=== PATIENT | male | born 1940 | race Two or more races ===

== ENCOUNTER → 2018-11-04 | Outpatient (CLI) | payer MEDICARE ==
[~2018-11-04] MED LIST: ASP81EC PO; ATO40T PO; CLOP75TA41 PO; GLIP-115 PO; LEVO100T8 PO; LISI40TA PO; METF-370 PO
[2018-11-04 11:19] VITALS: BP 126/59
--- NOTE | 2018-11-04 11:19 | NUR ---
Pre-Op Discharge Summary: See e-MAR for any medications given for this visit. Pre-op orders received and carried out per MD of EKG, LABS and chest xrays. Patient given a copy of EKG with instructions to go to [facility] out patient for further follow up care.
[2018-11-04 11:45] VITALS: BP 108/57
[2018-11-04 12:26] LABS: Basophils # (auto) 0 uL; Basophils % (auto) 0.4 % (0.0-2.0); Eosinophils # (auto) 0.4 uL; Eosinophils % (auto) 5.4 % (0.0-7.0); Hematocrit 42.7 % (41.0-53.0); Hemoglobin 14.2 g/dL (13.5-17.5); Lymphocytes # (auto) 1.8 uL; Lymphocytes % (auto) 22.8 % (10.0-50.0); Mean Corpuscular Hemoglobin 31.3 pg (28.0-32.0); Mean Corpuscular Hgb Conc. 33.2 g/dL (32.0-36.0); Mean Corpuscular Volume 94.3 fL (80.0-100.0); Monocytes # (auto) 0.7 uL; Monocytes % (auto) 9.1 % (0.0-12.0); Neutrophils # (auto) 4.9 uL; Neutrophils % (auto) 62.3 % (37.0-80.0); Nucleated Red Blood Cells % 0.1 %; Platelet Count (auto) 207 10^3/uL (140-450); Red Blood Cells 4.53 10^6/uL (4.5-5.90); Red Cell Distribution Width 13.5 % (11.8-14.3); White Blood Cell 7.8 10^3/uL (4.4-10.8)
[2018-11-04 12:29] LABS: INR 1.04 (0.9-1.15); Partial Thromboplastin Time 26.8 sec (23.78-33.04); Prothrombin Time 11.1 sec (9.27-12.13)
[2018-11-04 12:31] LABS: Potassium 4.2 mmol/L (3.5-5.1)
[2018-11-04 12:40] LABS: BUN/Creatinine Ratio 17.1
== END | disposition home or self-care (01) ==
LOC: Rad HDHVI 11:05
PROVIDERS: ATTEND Internal Medicine Cardiovascular Disease
DX: Z01.812 Encounter for preprocedural laboratory examination (principal); D64.9 Anemia, unspecified; R79.1 Abnormal coagulation profile; I10 Essential (primary) hypertension; I70.0 Atherosclerosis of aorta; E11.9 Type 2 diabetes mellitus without complications
CPT/HCPCS: 36415; 71046; 80048; 85025; 85610; 85730; 93005; G0463

== ENCOUNTER 2018-11-07 09:26 | Inpatient (IN) | payer MEDICARE, OTHER | END 2018-11-09 15:15 | disposition home or self-care (01) | LOC: CATH 09:26 → CENTRAL 15:33 | PROC: B41G1ZZ Fluoroscopy of Left Lower Extremity Arteries using Low Osmolar Contrast (ICD-10-PCS; principal; ~2018-11-07) | PROC: 047M34Z Dilation of Right Popliteal Artery with Drug-eluting Intraluminal Device, Percutaneous Approach (ICD-10-PCS; ~2018-11-07) | PROC: 047 Lower Arteries, Dilation (ICD-10-PCS; ~2018-11-07) | PROC: B41F1ZZ Fluoroscopy of Right Lower Extremity Arteries using Low Osmolar Contrast (ICD-10-PCS; ~2018-11-07) | DX: I73.9 Peripheral vascular disease, unspecified (principal); E78.5 Hyperlipidemia, unspecified; I10 Essential (primary) hypertension; I25.10 Atherosclerotic heart disease of native coronary artery without angina pectoris ==

== ENCOUNTER → 2018-12-16 | Outpatient (CLI) | payer MEDICARE | END | disposition home or self-care (01) | LOC: Rad HDHVI 10:09 | PROVIDERS: ATTEND Internal Medicine Cardiovascular Disease | DX: I67.2 Cerebral atherosclerosis (principal); G31.9 Degenerative disease of nervous system, unspecified | CPT/HCPCS: 70450 ==

== ENCOUNTER → 2018-12-25 | Outpatient (CLI) | payer MEDICARE ==
[~2018-12-25] MED LIST changes: +RIVA10TA PO
[2018-12-25 09:00] VITALS: BP 129/56
[2018-12-25 09:30] VITALS: BP 116/55
--- NOTE | 2018-12-25 09:30 | NUR ---
Pre-Op Discharge Summary: See e-MAR for any medications given for this visit. Pre-op orders received and carried out per MD of EKG, LABS and prescription for a chest xray given to patient. Patient given a copy of EKG with instructions to go to [facility] out patient for further follow up care.
[2018-12-25 12:07] LABS: Basophils # (auto) 0.1 uL; Basophils % (auto) 0.8 % (0.0-2.0); Eosinophils # (auto) 0.6 uL; Eosinophils % (auto) 7.3 % (0.0-7.0); Hematocrit 41.7 % (41.0-53.0); Hemoglobin 14.1 g/dL (13.5-17.5); Lymphocytes % (auto) 24.9 % (10.0-50.0); Mean Corpuscular Hemoglobin 32.4 pg (28.0-32.0); Mean Corpuscular Hgb Conc. 33.8 g/dL (32.0-36.0); Monocytes # (auto) 0.9 uL; Monocytes % (auto) 10.9 % (0.0-12.0); Neutrophils # (auto) 4.4 uL; Neutrophils % (auto) 56.1 % (37.0-80.0); Nucleated Red Blood Cells % 0.2 %; Platelet Count (auto) 228 10^3/uL (140-450); Red Blood Cells 4.35 10^6/uL (4.5-5.90); Red Cell Distribution Width 14.1 % (11.8-14.3); White Blood Cell 7.9 10^3/uL (4.4-10.8)
[2018-12-25 12:17] LABS: Calcium 9.3 mg/dL (8.5-10.1); Potassium 4.8 mmol/L (3.5-5.1)
[2018-12-25 12:20] LABS: BUN/Creatinine Ratio 16.5
[2018-12-25 12:22] LABS: INR 1.03 (0.9-1.15); Partial Thromboplastin Time 27.2 sec (23.64-32.05); Prothrombin Time 11.1 sec (9.06-12.60)
== END | disposition home or self-care (01) ==
LOC: CHF HDHVI 08:56
PROVIDERS: ATTEND Internal Medicine Cardiovascular Disease
DX: Z01.812 Encounter for preprocedural laboratory examination (principal); I11.0 Hypertensive heart disease with heart failure; I50.9 Heart failure, unspecified; D64.9 Anemia, unspecified; R79.1 Abnormal coagulation profile; E11.9 Type 2 diabetes mellitus without complications; I73.9 Peripheral vascular disease, unspecified
CPT/HCPCS: 36415; 80048; 85025; 85610; 85730; 93005; G0463

== ENCOUNTER 2018-12-27 10:47 | Inpatient (IN) | payer MEDICARE ==
[~2018-12-27] VITALS: Ht 175.3 cm; Wt 91.2 kg
[~2018-12-27 10:47] MED LIST changes: -ASP81EC PO
[2018-12-27] MEDS ORDERED: HEPARIN IN NS 1000Units/500mL 1,500 ML ONE (12:42)
[2018-12-27] MEDS ORDERED: LIDOCAINE 2%HCL (LOCAL ANESTH.) INJ 20ML MDV ONE (12:42)
[2018-12-27] MEDS ORDERED: IOHEXOL 350 MG/ML 100ML IJ ONE (12:42)
[2018-12-27] MEDS ORDERED: ANGIOMAX 250 MG VIAL IV ONE (12:55)
[2018-12-27] MEDS ORDERED: PHENYLEPHRINE HCL 10 MG/ML VL ONE (12:55)
[2018-12-27] MEDS ORDERED: GLYCOPYRROLATE 0.2 MG/ML 1ML VIAL ONE (12:55)
[2018-12-27] MEDS ORDERED: SODIUM CHL 0.9% 50 ML ONE (12:55)
[2018-12-27] MEDS ORDERED: ATROPINE SULFATE 1 MG/1 ML VIAL ONE (13:40)
[2018-12-27] MEDS ORDERED: CLOPIDOGREL BISULFATE 75 MG TAB ONE (14:06)
[2018-12-27] MEDS ORDERED: DOPamine 1600MCG/ML D5W 250 ML IV ONE (14:42)
[2018-12-27] MEDS: DOPamine 1600MCG/ML D5W 250 ML IV SCH (15:10)
[2018-12-27] MEDS ORDERED: MORPHINE SULF INJ 2 MG/ML SYRINGE 1ML IV PRN (15:15)
[2018-12-27] MEDS ORDERED: DEXTROSE (50%) 50ML SYRG IV PRN (15:15)
[2018-12-27] MEDS ORDERED: NITROGLYCERIN 0.4 MG SL TAB SL PRN (15:15)
[2018-12-27] MEDS: HYDROcodone-ACET 5/325MG TAB PO PRN ×2 (15:20→19:36)
[2018-12-27] MEDS: ONDANSETRON HCL 4 MG/2 ML VIAL IV PRN ×2 (17:37→22:04)
[2018-12-27] MEDS: InsuLIN REG 1unit/0.01ml Soln (100units/ml) SC SCH ×2 (18:10→22:03)
[2018-12-27] MEDS: ACCU-CHEK COMFORT CURVE STRIP VI SCH ×2 (18:11→22:03)
[2018-12-27] MEDS: glipiZIDE 5 MG TAB PO SCH (18:11)
--- NOTE | 2018-12-27 18:34 | NUR ---
Report received from cath lab tech. KEVIN MCKEON brought to bed following Cardiac catheterization, on director of cardiac cath lab and portable oxygen. Patient transfered to unit bed, connected to traffic monitor specialist # and oxygen. Catheterization site assessed for any bleeding, redness or swelling. Angioseal to right groin. Pedal pulses on affected leg assessed for positive tissue perfusion. Patient instructed on need to notify staff immediately if any pain, burning or wetness to site, and any lower back pain. Patient educated on new cardiac medications. All questions and concerns addressed, patient verbalized understanding of all education and instruction. See notes for any further.
[2018-12-27 20:00] VITALS: BP 120/58
[2018-12-27 21:00] VITALS: BP 119/100
[2018-12-27 22:00] VITALS: BP_SYST 119; BP_SYST 97; BP_DIAS 100; BP_DIAS 44
--- NOTE | 2018-12-27 22:00 | NUR ---
Q1hr BP and Pulses Complete Last check done at 2200. Vitals signs stable and charted under interventions. All pedal pulses audible via doppler. Pt reports no pain at the insertion site as well as no numbness or tingling sensations in feet or toes. Will continue to monitor.
[2018-12-27] MEDS: ATORVASTATIN 20 MG TAB PO SCH (22:03)
[2018-12-27] MEDS: ACETAMINOPHEN 500 MG TAB PO PRN (22:04)
[2018-12-28 04:30] VITALS: BP 125/51
[2018-12-28] MEDS: HYDROcodone-ACET 5/325MG TAB PO PRN (05:07)
[2018-12-28] MEDS: DOPamine 1600MCG/ML D5W 250 ML IV SCH ×2 (06:30→20:36)
[2018-12-28] MEDS: ACCU-CHEK COMFORT CURVE STRIP VI SCH ×4 (06:42→22:11)
[2018-12-28] MEDS: LEVOTHYROXINE SODIUM 100 MCG TAB PO SCH (06:51)
[2018-12-28] MEDS: glipiZIDE 5 MG TAB PO SCH ×2 (06:51→17:48)
[2018-12-28] MEDS: InsuLIN REG 1unit/0.01ml Soln (100units/ml) SC SCH ×4 (06:52→22:18)
--- NOTE | 2018-12-28 07:30 | NUR ---
Opening Shift Note Assumed care of patient, awake and alert. No S/S of distress/SOB or pain. S/P angiogram to right groin, dry and intact. Instructed on POC and to call for assist PRN, will continue to monitor for changes Q1hr and PRN.
[2018-12-28] MEDS: ONDANSETRON HCL 4 MG/2 ML VIAL IV PRN ×4 (07:42→21:11)
[2018-12-28 08:06] VITALS: BP 125/60
[2018-12-28] MEDS: RIVAROXABAN 2.5 MG PO SCH (09:51)
[2018-12-28] MEDS: CLOPIDOGREL BISULFATE 75 MG TAB PO SCH (09:51)
[2018-12-28] MEDS: LISINOPRIL 20 MG TAB PO SCH (09:57)
--- NOTE | 2018-12-28 09:57 | NUR ---
Dr. Wong paged regarding BP 74/25 HR : 47 Awaiting to call back.
[2018-12-28] MEDS ORDERED: RIVAROXABAN 10 MG TAB PO SCH (10:00)
--- NOTE | 2018-12-28 10:06 | NUR ---
Received a call from Dr. Wong stated continue with Dobutamine drip and start Florinef 0.1 mg BID.
[2018-12-28 11:00] VITALS: BP 141/41
[2018-12-28 12:08] VITALS: BP 133/48
[2018-12-28 16:37] VITALS: BP 132/56
[2018-12-28 21:00] VITALS: BP 63/26
--- NOTE | 2018-12-28 21:20 | NUR ---
At the request of Samara BECKFORD Ribbermerchandise director, I went to speak with patient and check vitals and status. Patient stated feels nauseated and legs are jerking and keeping him awake. SBP 133. Let patient know to call his RN if feeling badly and let him know he can call me as well. Verbalized understanding.
--- NOTE | 2018-12-28 21:30 | NUR ---
Spoke with Ivana waters RN and asked her to do hourly BP on this patient while on dopamine. Verbalized understanding.
--- NOTE | 2018-12-28 21:52 | NUR ---
BLOOD PRESSURE CHECK BP IS 138/36 . HR 49
--- NOTE | 2018-12-28 21:53 | NUR ---
DR JENNIFER RAMIREZ PATIENT IS COMPLAINING OF SPONTANEOUS TWITCHING IN BOTH LEGS, STATES THAT THIS IS SOMETHING NEW AND JUST STARTED TODAY. WILL AWAIT FOR ANY NEW INTERVENTIONS TO BE DONE.
[2018-12-28] MEDS: ATORVASTATIN 20 MG TAB PO SCH (22:10)
[2018-12-28] MEDS: FLUDROCORTISONE ACETATE 0.1 MG TAB PO SCH (22:10)
--- NOTE | 2018-12-28 22:44 | NUR ---
BLOOD PRESSURE CHECK BP 132/40 HR 47
--- NOTE | 2018-12-28 23:28 | NUR ---
NEW ORDERS PLACED FOR MAG SULFATE 2G IVPB
--- NOTE | 2018-12-28 23:56 | NUR ---
BLOOD PRESSURE CHECK BP 146/48 HR 66
[2018-12-29] MEDS: MAGNESIUM SULFATE 1GM/100ML 100 ML IV SCH ×2 (00:18→01:38)
--- NOTE | 2018-12-29 00:47 | NUR ---
BLOOD PRESSURE CHECK BP 122/28 HR 48
--- NOTE | 2018-12-29 01:52 | NUR ---
BLOOD PRESSURE CHECK BP 133/40 HR 51
--- NOTE | 2018-12-29 02:57 | NUR ---
BLOOD PRESSURE CHECK BP 129/40 HR 51
--- NOTE | 2018-12-29 03:50 | NUR ---
BLOOD PRESSURE CHECK BP 142/44 HR 56
[2018-12-29 05:00] VITALS: BP 132/37
--- NOTE | 2018-12-29 05:01 | NUR ---
BLOOD PRESSURE CHECK BP 132/37 HR 55
[2018-12-29] MEDS: glipiZIDE 5 MG TAB PO SCH ×2 (06:50→17:36)
[2018-12-29] MEDS: LEVOTHYROXINE SODIUM 100 MCG TAB PO SCH (06:51)
[2018-12-29] MEDS: InsuLIN REG 1unit/0.01ml Soln (100units/ml) SC SCH ×4 (06:51→22:00)
[2018-12-29] MEDS: ACCU-CHEK COMFORT CURVE STRIP VI SCH ×4 (06:51→22:04)
--- NOTE | 2018-12-29 07:30 | NUR ---
Opening Shift Note Assumed care of patient, awake and alert. No S/S of distress/SOB or pain. Instructed on POC and to call for assist PRN, will continue to monitor for changes Q1hr and PRN.
[2018-12-29 09:00] VITALS: BP 114/57
[2018-12-29] MEDS: CLOPIDOGREL BISULFATE 75 MG TAB PO SCH (09:27)
[2018-12-29] MEDS: FLUDROCORTISONE ACETATE 0.1 MG TAB PO SCH ×2 (09:27→22:04)
[2018-12-29] MEDS: LISINOPRIL 20 MG TAB PO SCH (09:28)
[2018-12-29] MEDS: RIVAROXABAN 2.5 MG PO SCH (09:28)
[2018-12-29] MEDS: DOPamine 1600MCG/ML D5W 250 ML IV SCH (12:10)
[2018-12-29 13:00] VITALS: BP 114/58
[2018-12-29 14:37] LABS: Basophils # (auto) 0 uL; Basophils % (auto) 0.4 % (0.0-2.0); Eosinophils # (auto) 0.1 uL; Eosinophils % (auto) 1.2 % (0.0-7.0); Hematocrit 43.1 % (41.0-53.0); Hemoglobin 14.5 g/dL (13.5-17.5); Lymphocytes # (auto) 1.2 uL; Lymphocytes % (auto) 13.1 % (10.0-50.0); Mean Corpuscular Hemoglobin 32.1 pg (28.0-32.0); Mean Corpuscular Hgb Conc. 33.6 g/dL (32.0-36.0); Mean Corpuscular Volume 95.6 fL (80.0-100.0); Monocytes # (auto) 0.9 uL; Monocytes % (auto) 9.6 % (0.0-12.0); Neutrophils % (auto) 75.7 % (37.0-80.0); Platelet Count (auto) 224 10^3/uL (140-450); Red Blood Cells 4.51 10^6/uL (4.5-5.90); White Blood Cell 9.2 10^3/uL (4.4-10.8)
[2018-12-29 15:16] VITALS: BP 91/45
[2018-12-29 17:00] VITALS: BP 131/59
--- NOTE | 2018-12-29 19:25 | NUR ---
Opening Shift Note Assumed care of pt, awake and alert x4, sitting up in bed with family at bedside. No S/S of distress or SOB, No pain noted or reported at this time. Updated pt. on POC and instructed to call for assistance as needed, pt. verbalized understanding. Bed locked in lowest position, side rails up x2, call light within reach. Will continue to monitor q1hr and PRN.
[2018-12-29 21:30] VITALS: BP 105/34
[2018-12-29] MEDS: ATORVASTATIN 20 MG TAB PO SCH (22:04)
[2018-12-30] VITALS: BP 98/47
[2018-12-30] MEDS: DOPamine 1600MCG/ML D5W 250 ML IV SCH (02:20)
[2018-12-30 05:00] VITALS: BP 94/40
[2018-12-30] MEDS: HYDROcodone-ACET 5/325MG TAB PO PRN (05:36)
[2018-12-30] MEDS: glipiZIDE 5 MG TAB PO SCH ×2 (06:34→17:50)
[2018-12-30] MEDS: LEVOTHYROXINE SODIUM 100 MCG TAB PO SCH (06:34)
[2018-12-30] MEDS: InsuLIN REG 1unit/0.01ml Soln (100units/ml) SC SCH ×4 (06:35→21:53)
[2018-12-30] MEDS: ACCU-CHEK COMFORT CURVE STRIP VI SCH ×4 (06:35→21:52)
--- NOTE | 2018-12-30 07:15 | NUR ---
Opening Shift Note RECEIVED REPORT FROM NOC RN. Assumed care of patient, awake and alert. No S/S of distress/SOB or pain. BED IN LOWEST, LOCKED POSITION WITH SIDERAILS UP x2. Instructed on POC and to call for assist PRN, will continue to monitor for changes Q1hr and PRN.
--- NOTE | 2018-12-30 08:05 | NUR ---
Patient sitting on bed, eating breakfast. No acute distress noted.
[2018-12-30 08:53] VITALS: BP 112/49
[2018-12-30] MEDS: LISINOPRIL 20 MG TAB PO SCH (10:00)
[2018-12-30] MEDS: FLUDROCORTISONE ACETATE 0.1 MG TAB PO SCH ×2 (10:27→21:52)
[2018-12-30] MEDS: RIVAROXABAN 2.5 MG PO SCH (10:27)
[2018-12-30] MEDS: CLOPIDOGREL BISULFATE 75 MG TAB PO SCH (10:28)
--- NOTE | 2018-12-30 11:20 | NUR ---
Dr. Wong came over. ordered to discontinue the Dopamine drip, start patient on NS at 75 ml/hr, collect urine specimen for UA. Patient's family member came over, spoke with Dr. Wong.
--- NOTE | 2018-12-30 11:50 | NUR ---
Urine specimen sent to Laboratory.
[2018-12-30] MEDS: SODIUM CHLORIDE 0.9% 1,000 ML IV SCH (12:11)
[2018-12-30 12:21] LABS: Urine Bacteria NONE SEEN /hpf (None Seen); Urine Blood Negative /uL (Negative); Urine Specific Gravity 1.011 (1.001-1.035); Urine WBC 4 /hpf (0 - 3)
--- NOTE | 2018-12-30 12:41 | NUR ---
Informed Dr. Wong that patient's BP = 73/33, Heart Rate = 54. Patient on NS at 75 ml/hr. Waiting for MD to call back.
--- NOTE | 2018-12-30 12:48 | NUR ---
Dr. Wong ordered to continue monitor the patient, ambulate with assistance, PT to ambulate.
[2018-12-30 13:00] VITALS: BP_SYST 70; BP_SYST 73; BP_DIAS 30; BP_DIAS 33
--- NOTE | 2018-12-30 13:30 | NUR ---
Hot packs given to patient for back pain.
[2018-12-30] MEDS: ACETAMINOPHEN 500 MG TAB PO PRN (13:39)
--- NOTE | 2018-12-30 13:39 | NUR ---
Tylenol PO given for back pain.
--- NOTE | 2018-12-30 14:00 | NUR ---
BLOOD PRESSURE CHECK 74/38 PULSE 52
--- NOTE | 2018-12-30 16:59 | NUR ---
BLOOD PRESSURE CHECK 83/43 PULSE 51
[2018-12-30 17:00] VITALS: BP 77/35
[2018-12-30 21:30] VITALS: BP 86/42
[2018-12-30] MEDS: ATORVASTATIN 20 MG TAB PO SCH (21:52)
[2018-12-31 05:00] VITALS: BP 106/49
[2018-12-31] MEDS: LEVOTHYROXINE SODIUM 100 MCG TAB PO SCH (06:41)
[2018-12-31] MEDS: InsuLIN REG 1unit/0.01ml Soln (100units/ml) SC SCH ×2 (06:42→11:39)
[2018-12-31] MEDS: glipiZIDE 5 MG TAB PO SCH (06:42)
[2018-12-31] MEDS: SODIUM CHLORIDE 0.9% 1,000 ML IV SCH (06:42)
[2018-12-31] MEDS: ACCU-CHEK COMFORT CURVE STRIP VI SCH ×2 (06:43→11:29)
[2018-12-31 08:38] VITALS: BP 93/49
--- NOTE | 2018-12-31 09:00 | NUR ---
Patient walking on the hallway. Steady gait noted.
[2018-12-31] MEDS: CLOPIDOGREL BISULFATE 75 MG TAB PO SCH (09:31)
[2018-12-31] MEDS: FLUDROCORTISONE ACETATE 0.1 MG TAB PO SCH (09:31)
[2018-12-31] MEDS: RIVAROXABAN 2.5 MG PO SCH (09:32)
[2018-12-31] MEDS: LISINOPRIL 20 MG TAB PO SCH (09:36)
[2018-12-31 12:32] VITALS: BP 111/51
--- NOTE | 2018-12-31 13:00 | NUR ---
Nye catheter dc'd Order to discontinue nye catheter. Nye dc'd with clean technique following deflation of balloon. Patient tolerated well with no complaints of pain. Continue care. Addendum: 12/31/18 at 1630 by IVON BAPTISET RN RN INCORRECT PATIENT.
--- NOTE | 2018-12-31 14:30 | NUR ---
IV lines removed, IV catheter intact, pressure dressings applied.
[2018-12-31 14:32] VITALS: BP 111/51
--- NOTE | 2018-12-31 15:00 | NUR ---
No distress noted at time of departure. Telemetry pack returned to [facility].
--- NOTE | 2018-12-31 15:00 | NUR ---
Regular Discharge Please follow up with your primary care physician DR RODRIGUEZ Your appointment is on JANUARY 08, 2019 at 3:10 PM. Phone number is: [phone] Address is: [address], [place] [address] PATIENT AND BELONGINGS TAKEN VIA WHEELCHAIR TO POV. PATIENT ACCOMPANIED BY FAMILY MEMBER. ALL QUESTIONS ANSWERED PRIOR TO DISCHARGE.
--- NOTE | 2018-12-31 17:59 | NUR ---
PT REPORTS THAT HE HAS BEEN WALKING FINE AND DOES NOT NEED P.T.
== END 2018-12-31 15:22 | disposition home or self-care (01) | DRG 36 ==
LOC: CATH 10:47 → TELE-CENTR 18:04
PROVIDERS: ADMIT Internal Medicine Cardiovascular Disease; ATTEND Internal Medicine Cardiovascular Disease
PROC: B3151ZZ Fluoroscopy of Bilateral Common Carotid Arteries using Low Osmolar Contrast (ICD-10-PCS; principal; 2018-12-27)
PROC: 037K3EZ Dilation of Right Internal Carotid Artery with Two Intraluminal Devices, Percutaneous Approach (ICD-10-PCS; 2018-12-27)
PROC: B3131ZZ Fluoroscopy of Right Common Carotid Artery using Low Osmolar Contrast (ICD-10-PCS; 2018-12-27)
PROC: B31R1ZZ Fluoroscopy of Intracranial Arteries using Low Osmolar Contrast (ICD-10-PCS; 2018-12-27)
PROC: B31D1ZZ Fluoroscopy of Right Vertebral Artery using Low Osmolar Contrast (ICD-10-PCS; 2018-12-27)
PROC: B3161ZZ Fluoroscopy of Right Internal Carotid Artery using Low Osmolar Contrast (ICD-10-PCS; 2018-12-27)
DX: I65.23 Occlusion and stenosis of bilateral carotid arteries (principal); I73.9 Peripheral vascular disease, unspecified; I10 Essential (primary) hypertension; I48.0 Paroxysmal atrial fibrillation; I95.9 Hypotension, unspecified; Z95.1 Presence of aortocoronary bypass graft; Z86.718 Personal history of other venous thrombosis and embolism; I25.2 Old myocardial infarction; I25.10 Atherosclerotic heart disease of native coronary artery without angina pectoris; E78.5 Hyperlipidemia, unspecified
CPT/HCPCS: 36415; 61635; 80048; 81001; 82962; 83880; 85025; 85610; 85730; 93005; G0378; G0463; J0461; J1815; J2405

== ENCOUNTER → 2019-01-27 | Outpatient (CLI) | payer MEDICARE ==
[~2019-01-27] VITALS: Ht 30.5 cm; Wt 0.5 kg
[~2019-01-27] MED LIST changes: +cloNIDine HCL 0.1 MG TAB ONE; +cloNIDine HCL 0.1 MG TAB PO ONE
[2019-01-27 09:10] VITALS: BP 155/79
--- NOTE | 2019-01-27 09:10 | NUR ---
CHF PT ARRIVED AT THE [facility] FOR PREOP EKG, CXR, LABS, A/O X 3 0 DISTRESS . V/S OBTAINED 0 DISTRESS
--- NOTE | 2019-01-27 09:15 | NUR ---
BP BP ELEVEVATED ORDER FOR CLONIDINE RECIEVED
--- NOTE | 2019-01-27 10:00 | NUR ---
BP CLONODINE 0.1 MG 1 TAB GIVEN
[2019-01-27 10:40] VITALS: BP 131/65
--- NOTE | 2019-01-27 10:44 | NUR ---
Discharge Instructions See e-MAR for any mediations given with this visit. Patient education given on disease process. Patient verbalized understanding. Previous labs reviewed. Patient discharged in stable condition with after care instructions and follow up appointment. MEDICATION 1000 CLONIDINE 0.1 MG PO X 1
[2019-01-27 11:01] LABS: Basophils # (auto) 0.1 uL; Basophils % (auto) 0.6 % (0.0-2.0); Eosinophils # (auto) 0.5 uL; Eosinophils % (auto) 5.1 % (0.0-7.0); Hematocrit 44.7 % (41.0-53.0); Lymphocytes # (auto) 1.8 uL; Lymphocytes % (auto) 17.3 % (10.0-50.0); Mean Corpuscular Hemoglobin 31.8 pg (28.0-32.0); Mean Corpuscular Hgb Conc. 33.5 g/dL (32.0-36.0); Monocytes # (auto) 1.1 uL; Monocytes % (auto) 10.8 % (0.0-12.0); Neutrophils # (auto) 6.7 uL; Neutrophils % (auto) 66.2 % (37.0-80.0); Platelet Count (auto) 208 10^3/uL (140-450); Red Blood Cells 4.71 10^6/uL (4.5-5.90); Red Cell Distribution Width 13.4 % (11.8-14.3); White Blood Cell 10.2 10^3/uL (4.4-10.8)
[2019-01-27 11:07] LABS: BUN/Creatinine Ratio 15.9; Calcium 9.3 mg/dL (8.5-10.1)
[2019-01-27 11:12] LABS: INR 1.01 (0.9-1.15); Partial Thromboplastin Time 28.8 sec (23.64-32.05)
== END | disposition home or self-care (01) ==
LOC: Rad HDHVI 09:01
PROVIDERS: ATTEND Internal Medicine Cardiovascular Disease
DX: Z01.812 Encounter for preprocedural laboratory examination (principal); D64.9 Anemia, unspecified; R79.1 Abnormal coagulation profile; I10 Essential (primary) hypertension; I70.0 Atherosclerosis of aorta
CPT/HCPCS: 36415; 71046; 80048; 85025; 85610; 85730; 93005; G0463

== ENCOUNTER 2019-01-30 06:56 | Day surgery (SDC) | payer MEDICARE ==
[~2019-01-30] VITALS: Ht 175.3 cm; Wt 86.2 kg
[~2019-01-30 06:56] MED LIST changes: -LISI40TA PO; -cloNIDine HCL 0.1 MG TAB ONE; -cloNIDine HCL 0.1 MG TAB PO ONE
[2019-01-30] MEDS ORDERED: GLYCOPYRROLATE 0.2 MG/ML 1ML VIAL ONE ×2 (07:42→07:55)
[2019-01-30] MEDS ORDERED: PHENYLEPHRINE HCL 10 MG/ML VL ONE (07:42)
[2019-01-30] MEDS ORDERED: ATROPINE SULFATE 1 MG/1 ML VIAL ONE (07:43)
[2019-01-30] MEDS ORDERED: EPINEPHrine HCL 1 MG/10 ML SYRG ONE (07:43)
[2019-01-30] MEDS ORDERED: LIDOCAINE 2%HCL (LOCAL ANESTH.) INJ 20ML MDV ONE (07:44)
[2019-01-30] MEDS ORDERED: DOPamine 1600MCG/ML D5W 0 ML IV ONE (08:41)
[2019-01-30] MEDS ORDERED: ANGIOMAX 250 MG VIAL IV ONE ×2 (08:43→09:48)
[2019-01-30] MEDS ORDERED: SODIUM CHL 0.9% 50 ML ONE ×2 (08:43→09:48)
[2019-01-30] MEDS ORDERED: IOHEXOL 350 MG/ML 100ML IJ ONE (08:45)
[2019-01-30] MEDS ORDERED: ceFAZolin 1GM/50ML 50 ML IV ONE (10:04)
[2019-01-30] MEDS ORDERED: HYDROmorphone HCL 2 MG/ML VL ONE (10:14)
[2019-01-30] MEDS ORDERED: ONDANSETRON HCL 4 MG/2 ML VIAL IV PRN (11:15)
[2019-01-30] MEDS ORDERED: HYDROcodone-ACET 5/325MG TAB PO PRN (11:15)
[2019-01-30] MEDS ORDERED: ACETAMINOPHEN 500 MG TAB PO PRN (11:15)
== END 2019-01-30 12:45 | disposition home or self-care (01) ==
LOC: CATH 06:56
PROVIDERS: ATTEND Internal Medicine Cardiovascular Disease
DX: I65.22 Occlusion and stenosis of left carotid artery (principal); I10 Essential (primary) hypertension; E78.5 Hyperlipidemia, unspecified; I25.2 Old myocardial infarction; Z86.73 Personal history of transient ischemic attack (TIA), and cerebral infarction without residual deficits; E78.00 Pure hypercholesterolemia, unspecified; Z95.1 Presence of aortocoronary bypass graft; Z87.891 Personal history of nicotine dependence
CPT/HCPCS: 37246; C1760; C1769; C1781; C1887; C1894; J0583; J0690; J1170; J1644; J7030; Q9967; 99152; 99153; J0461

== ENCOUNTER → 2019-05-21 | Outpatient (CLI) | payer MEDICARE ==
[~2019-05-21] MED LIST changes: -GLIP-115 PO; +GLIP5TAB12 PO
== END | disposition home or self-care (01) ==
LOC: Rad HDHVI 08:12
PROVIDERS: ATTEND Internal Medicine Cardiovascular Disease
DX: I65.21 Occlusion and stenosis of right carotid artery (principal); E11.21 Type 2 diabetes mellitus with diabetic nephropathy; I73.9 Peripheral vascular disease, unspecified; I11.9 Hypertensive heart disease without heart failure; I25.10 Atherosclerotic heart disease of native coronary artery without angina pectoris; E78.5 Hyperlipidemia, unspecified; Z87.891 Personal history of nicotine dependence
CPT/HCPCS: 93880

== ENCOUNTER → 2019-05-22 | Outpatient (CLI) | payer MEDICARE ==
[2019-05-22 12:32] LABS: BUN/Creatinine Ratio 15.8; Calcium 9.5 mg/dL (8.5-10.1); Uric Acid 5.4 mg/dL (3.5-7.2)
[2019-05-22 12:43] LABS: Potassium 4.1 mmol/L (3.5-5.1)
== END | disposition home or self-care (01) ==
LOC: LAB 10:52
PROVIDERS: ATTEND Internal Medicine Cardiovascular Disease
DX: M10.9 Gout, unspecified (principal)
CPT/HCPCS: 36415; 80048; 84550

== ENCOUNTER → 2019-06-16 | Outpatient (CLI) | payer MEDICARE ==
[2019-06-16 12:18] LABS: Calcium 9.5 mg/dL (8.5-10.1); Potassium 4.2 mmol/L (3.5-5.1)
[2019-06-16 12:20] LABS: BUN/Creatinine Ratio 22.1
== END | disposition home or self-care (01) ==
LOC: LAB 09:11
PROVIDERS: ATTEND Internal Medicine Cardiovascular Disease
DX: E11.65 Type 2 diabetes mellitus with hyperglycemia (principal); M10.9 Gout, unspecified; I73.9 Peripheral vascular disease, unspecified; I11.9 Hypertensive heart disease without heart failure; I25.10 Atherosclerotic heart disease of native coronary artery without angina pectoris; E78.5 Hyperlipidemia, unspecified; Z87.891 Personal history of nicotine dependence
CPT/HCPCS: 36415; 80048; 83036; 84550

== ENCOUNTER → 2019-09-02 | Outpatient (CLI) | payer OTHER ==
[2019-09-02 07:42] LABS: Basophils # (auto) 0.1 uL; Basophils % (auto) 0.7 % (0.0-2.0); Eosinophils # (auto) 0.4 uL; Eosinophils % (auto) 5.7 % (0.0-7.0); Hematocrit 45.3 % (41.0-53.0); Hemoglobin 15.1 g/dL (13.5-17.5); Lymphocytes # (auto) 1.2 uL; Lymphocytes % (auto) 16.1 % (10.0-50.0); Mean Corpuscular Hemoglobin 31.6 pg (28.0-32.0); Mean Corpuscular Hgb Conc. 33.4 g/dL (32.0-36.0); Mean Corpuscular Volume 94.6 fL (80.0-100.0); Monocytes # (auto) 0.8 uL; Monocytes % (auto) 10.6 % (0.0-12.0); Neutrophils % (auto) 66.9 % (37.0-80.0); Nucleated Red Blood Cells % 0.2 %; Platelet Count (auto) 204 10^3/uL (140-450); Red Blood Cells 4.78 10^6/uL (4.5-5.90); Red Cell Distribution Width 13.9 % (11.8-14.3); White Blood Cell 7.4 10^3/uL (4.4-10.8)
[2019-09-02 07:45] LABS: Urine Bacteria NONE SEEN /hpf (None Seen); Urine Blood Negative /uL (Negative); Urine Specific Gravity 1.021 (1.001-1.035); Urine WBC <1 /hpf (0 - 3)
[2019-09-02 08:04] LABS: Albumin 3.9 g/dL (3.4-5.0); Calcium 9.3 mg/dL (8.5-10.1)
[2019-09-02 08:09] LABS: BUN/Creatinine Ratio 22.2; Bilirubin, Total 0.6 mg/dL (0.2-1.0); Total Protein 7.4 g/dL (6.4-8.2); Uric Acid 3.3 mg/dL (3.5-7.2)
[2019-09-02 09:11] LABS: Prostate Specific Antigen 6.43 ng/mL (0.0-4.0)
[2019-09-02 09:12] LABS: Free T4 (Free Thyroxine) 0.98 ng/dL (0.89-1.76)
== END | disposition home or self-care (01) ==
LOC: LAB 07:18
PROVIDERS: ATTEND Internal Medicine
DX: I10 Essential (primary) hypertension (principal); E11.9 Type 2 diabetes mellitus without complications; N40.0 Benign prostatic hyperplasia without lower urinary tract symptoms
CPT/HCPCS: 36415; 80053; 80061; 81001; 82043; 83036; 84153; 84154; 84439; 84443; 84550; 85025; 85652

== ENCOUNTER → 2019-09-22 | Outpatient (CLI) | payer OTHER, MEDICARE | END | disposition home or self-care (01) | LOC: Rad HDHVI 14:40 | PROVIDERS: ATTEND Internal Medicine Cardiovascular Disease | DX: I70.0 Atherosclerosis of aorta (principal); I50.23 Acute on chronic systolic (congestive) heart failure; I48.0 Paroxysmal atrial fibrillation; R06.02 Shortness of breath | CPT/HCPCS: 93306 ==

== ENCOUNTER → 2019-09-29 | Outpatient (CLI) | payer MEDICARE, OTHER | END | disposition home or self-care (01) | LOC: Rad HDHVI 13:17 | PROVIDERS: ATTEND Internal Medicine Cardiovascular Disease | DX: E11.9 Type 2 diabetes mellitus without complications (principal); I25.10 Atherosclerotic heart disease of native coronary artery without angina pectoris; I10 Essential (primary) hypertension; I25.2 Old myocardial infarction; E78.00 Pure hypercholesterolemia, unspecified; Z95.5 Presence of coronary angioplasty implant and graft | CPT/HCPCS: 78452; 93017; 96374; A9500 ==

== ENCOUNTER 2019-11-25 10:14 | Inpatient (IN) | payer OTHER ==
[~2019-11-25] VITALS: Ht 175.3 cm; Wt 87.7 kg
[2019-11-25] MEDS ORDERED: cefTRIAXone 1GM/50ML D5W 50 ML IV ONE (11:00)
[2019-11-25] MEDS ORDERED: ASPirin 81 mg TAB PO ONE (11:00)
[2019-11-25 11:16] LABS: Basophils # (auto) 0 10 ^3/uL (0-0.2); Basophils % (auto) 0.7 % (0.0-2.0); Eosinophils # (auto) 0.2 10 ^3/uL (0-0.8); Eosinophils % (auto) 3.1 % (0.0-7.0); Hemoglobin 14.1 g/dL (13.5-17.5); Lymphocytes # (auto) 1.1 10 ^3/uL (0.4-5.4); Lymphocytes % (auto) 18.1 % (10.0-50.0); Mean Corpuscular Hemoglobin 32.1 pg (28.0-32.0); Mean Corpuscular Hgb Conc. 33.6 g/dL (32.0-36.0); Mean Corpuscular Volume 95.5 fL (80.0-100.0); Monocytes # (auto) 0.6 10 ^3/uL (0-1.3); Neutrophils # (auto) 4.3 10 ^3/uL (1.6-8.6); Neutrophils % (auto) 68.1 % (37.0-80.0); Platelet Count (auto) 178 10^3/uL (140-450); Red Cell Distribution Width 14.2 % (11.8-14.3); White Blood Cell 6.3 10^3/uL (4.4-10.8)
[2019-11-25 11:33] LABS: Albumin 3.4 g/dL (3.4-5.0); Calcium 8.7 mg/dL (8.5-10.1)
[2019-11-25 11:34] LABS: INR 1.16 (0.9-1.15); Partial Thromboplastin Time 30.7 sec (23.64-32.05)
[2019-11-25 11:39] LABS: BUN/Creatinine Ratio 20.9; Bilirubin, Total 0.6 mg/dL (0.2-1.0); Total Protein 6.6 g/dL (6.4-8.2)
[2019-11-25 12:24] LABS: Urine Bacteria FEW /hpf (None Seen); Urine Blood 3+ /uL (Negative); Urine Specific Gravity 1.016 (1.001-1.035); Urine WBC 6 /hpf (0 - 3)
[2019-11-25] MEDS ORDERED: ONDANSETRON HCL 4 MG/2 ML VIAL IV ONE (12:30)
[2019-11-25] MEDS ORDERED: MORPHINE SULF INJ 2 MG/ML SYRINGE 1ML IV ONE (12:30)
[2019-11-25] MEDS ORDERED: MORPHINE SULF INJ 2 MG/ML SYRINGE 1ML IV PRN (13:15)
[2019-11-25] MEDS ORDERED: ACETAMINOPHEN 500 MG TAB PO PRN (13:15)
[2019-11-25] MEDS ORDERED: hydrALAZINE HCL 20 MG/ML VL IV PRN (13:15)
[2019-11-25] MEDS ORDERED: DEXTROSE (50%) 50ML SYRG IV PRN (13:15)
[2019-11-25] MEDS ORDERED: NITROGLYCERIN 0.4 MG SL TAB SL PRN (13:15)
[2019-11-25 16:26] VITALS: BP 133/70
[2019-11-25] MEDS: ACCU-CHEK COMFORT CURVE STRIP VI SCH ×2 (18:00→22:08)
[2019-11-25] MEDS ORDERED: PATIENTS OWN MEDICATION (Atorvastatin Calcium (Lipitor) 1 TAB) PO SCH (18:00)
[2019-11-25] MEDS: InsuLIN REG 1unit/0.01ml Soln (100units/ml) SC SCH ×2 (18:00→22:00)
[2019-11-25] MEDS: HYDROcodone-ACET 5/325MG TAB PO PRN (19:43)
[2019-11-25 20:00] VITALS: BP 143/72
[2019-11-25 21:42] VITALS: BP 143/72
[2019-11-25] MEDS: ATORVASTATIN 20 MG TAB PO SCH (22:07)
[2019-11-25] MEDS: METOPROLOL TARTRATE 25 MG TAB PO SCH (22:08)
[2019-11-25] MEDS: ONDANSETRON HCL 4 MG/2 ML VIAL IV PRN (22:09)
[2019-11-25] MEDS: MORPHINE SULF INJ 2 MG/ML SYRINGE 1ML IV PRN (22:09)
[2019-11-26 04:38] VITALS: BP 135/65
[2019-11-26] MEDS: ONDANSETRON HCL 4 MG/2 ML VIAL IV PRN (04:47)
[2019-11-26] MEDS: MORPHINE SULF INJ 2 MG/ML SYRINGE 1ML IV PRN (04:47)
[2019-11-26 06:30] LABS: Basophils # (auto) 0 10 ^3/uL (0-0.2); Basophils % (auto) 0.6 % (0.0-2.0); Eosinophils # (auto) 0.4 10 ^3/uL (0-0.8); Eosinophils % (auto) 5.5 % (0.0-7.0); Hematocrit 43.1 % (41.0-53.0); Hemoglobin 14.5 g/dL (13.5-17.5); Lymphocytes # (auto) 1.4 10 ^3/uL (0.4-5.4); Lymphocytes % (auto) 21.7 % (10.0-50.0); Mean Corpuscular Hemoglobin 32.3 pg (28.0-32.0); Mean Corpuscular Hgb Conc. 33.6 g/dL (32.0-36.0); Monocytes # (auto) 0.7 10 ^3/uL (0-1.3); Monocytes % (auto) 10.2 % (0.0-12.0); Neutrophils # (auto) 4.1 10 ^3/uL (1.6-8.6); Platelet Count (auto) 163 10^3/uL (140-450); Red Blood Cells 4.49 10^6/uL (4.5-5.90); Red Cell Distribution Width 14.4 % (11.8-14.3); White Blood Cell 6.6 10^3/uL (4.4-10.8)
[2019-11-26 06:34] LABS: INR 1.14 (0.9-1.15); Partial Thromboplastin Time 29.2 sec (23.64-32.05)
[2019-11-26] MEDS: LEVOTHYROXINE SODIUM 100 MCG TAB PO SCH (06:37)
[2019-11-26] MEDS: InsuLIN REG 1unit/0.01ml Soln (100units/ml) SC SCH ×4 (06:38→21:30)
[2019-11-26] MEDS: ACCU-CHEK COMFORT CURVE STRIP VI SCH ×4 (06:38→21:28)
[2019-11-26 06:40] LABS: Potassium 4.2 mmol/L (3.5-5.1)
[2019-11-26 06:41] LABS: BUN/Creatinine Ratio 23.9
[2019-11-26 09:00] VITALS: BP 122/65
[2019-11-26] MEDS: METOPROLOL TARTRATE 25 MG TAB PO SCH ×2 (09:20→21:57)
[2019-11-26] MEDS: CLOPIDOGREL BISULFATE 75 MG TAB PO SCH (09:20)
[2019-11-26] MEDS: ASPirin-EC 81 mg tab PO SCH (09:20)
[2019-11-26] MEDS: LISINOPRIL 10 MG TAB PO SCH (09:21)
[2019-11-26] MEDS: PANTOPRAZOLE 40 MG TAB PO SCH (09:21)
[2019-11-26] MEDS ORDERED: FAMOTIDINE 20 MG TAB PO SCH (10:00)
[2019-11-26] MEDS ORDERED: ALLOPURINOL 300 MG TAB PO ONE (12:15)
[2019-11-26 12:43] VITALS: BP 110/55
[2019-11-26 17:00] VITALS: BP 102/50
[2019-11-26] MEDS: RIVAROXABAN 2.5 MG PO SCH (17:30)
[2019-11-26] MEDS: TAMSULOSIN HYDROCHLORIDE 0.4 MG CAP PO SCH (17:52)
[2019-11-26] MEDS: HYDROcodone-ACET 5/325MG TAB PO PRN (20:04)
[2019-11-26] MEDS: ATORVASTATIN 20 MG TAB PO SCH (21:29)
[2019-11-26 21:46] VITALS: BP 100/52
[2019-11-27 04:44] VITALS: BP 92/54
[2019-11-27] MEDS: MORPHINE SULF INJ 2 MG/ML SYRINGE 1ML IV PRN ×2 (05:59→14:22)
[2019-11-27] MEDS: ACCU-CHEK COMFORT CURVE STRIP VI SCH ×4 (06:14→21:03)
[2019-11-27] MEDS: InsuLIN REG 1unit/0.01ml Soln (100units/ml) SC SCH ×4 (06:15→21:04)
[2019-11-27] MEDS: LEVOTHYROXINE SODIUM 100 MCG TAB PO SCH (06:16)
[2019-11-27] MEDS ORDERED: IOHEXOL 350 MG/ML 100ML IJ ONE ×3 (08:11→10:13)
[2019-11-27] MEDS ORDERED: LIDOCAINE 2%HCL (LOCAL ANESTH.) INJ 20ML MDV ONE (08:11)
[2019-11-27] MEDS ORDERED: ANGIOMAX 250 MG VIAL IV ONE (08:50)
[2019-11-27] MEDS ORDERED: MIDAZOLAM HCL 1MG/1ML-2 ML VIAL ONE (08:51)
[2019-11-27] MEDS ORDERED: fentaNYL CITRATE 100 MCG/2 ML VL ONE (08:51)
[2019-11-27] MEDS ORDERED: SODIUM CHL 0.9% 50 ML ONE (08:51)
[2019-11-27 08:54] VITALS: BP 98/45
[2019-11-27] MEDS: ASPirin-EC 81 mg tab PO SCH (10:00)
[2019-11-27] MEDS: CLOPIDOGREL BISULFATE 75 MG TAB PO SCH (10:00)
[2019-11-27] MEDS ORDERED: CLOPIDOGREL BISULFATE 75 MG TAB ONE (10:21)
[2019-11-27] MEDS ORDERED: ASPirin 81 mg TAB ONE (10:21)
[2019-11-27] MEDS ORDERED: SODIUM CHL 0.9% 500 ML IV ONE (11:00)
[2019-11-27] MEDS: METOPROLOL TARTRATE 25 MG TAB PO SCH ×2 (12:25→21:31)
[2019-11-27] MEDS: PANTOPRAZOLE 40 MG TAB PO SCH (12:26)
[2019-11-27] MEDS: LISINOPRIL 10 MG TAB PO SCH (12:26)
[2019-11-27] MEDS: ALLOPURINOL 300 MG TAB PO SCH (12:26)
[2019-11-27] MEDS: FINASTERIDE 5 MG TAB PO SCH (12:26)
[2019-11-27 13:00] VITALS: BP 117/60
[2019-11-27] MEDS: RIVAROXABAN 2.5 MG PO SCH (13:15)
[2019-11-27] MEDS: HYDROcodone-ACET 5/325MG TAB PO PRN (15:22)
[2019-11-27 17:00] VITALS: BP 90/39
[2019-11-27] MEDS: TAMSULOSIN HYDROCHLORIDE 0.4 MG CAP PO SCH (17:56)
[2019-11-27 19:05] VITALS: BP 102/45
[2019-11-27] MEDS: ATORVASTATIN 20 MG TAB PO SCH (21:30)
[2019-11-27 22:00] VITALS: BP 93/47
[2019-11-28 05:00] VITALS: BP 132/59
[2019-11-28] MEDS: LEVOTHYROXINE SODIUM 100 MCG TAB PO SCH (06:07)
[2019-11-28] MEDS: ACCU-CHEK COMFORT CURVE STRIP VI SCH ×2 (06:15→11:40)
[2019-11-28] MEDS: InsuLIN REG 1unit/0.01ml Soln (100units/ml) SC SCH ×2 (06:16→11:37)
[2019-11-28 08:03] VITALS: BP 110/55
[2019-11-28 09:04] VITALS: BP 110/55
[2019-11-28] MEDS: FINASTERIDE 5 MG TAB PO SCH (09:37)
[2019-11-28] MEDS: ASPirin-EC 81 mg tab PO SCH (09:37)
[2019-11-28] MEDS: CLOPIDOGREL BISULFATE 75 MG TAB PO SCH (09:37)
[2019-11-28] MEDS: PANTOPRAZOLE 40 MG TAB PO SCH (09:38)
[2019-11-28] MEDS: ALLOPURINOL 300 MG TAB PO SCH (09:38)
[2019-11-28] MEDS: METOPROLOL TARTRATE 25 MG TAB PO SCH (10:00)
[2019-11-28] MEDS: LISINOPRIL 10 MG TAB PO SCH (10:00)
[2019-11-28 13:01] VITALS: BP 113/51
[2019-11-28 13:42] VITALS: BP 113/51
== END 2019-11-28 14:50 | disposition home or self-care (01) | DRG 247 ==
LOC: EDBD → ER 10:14 → TELE 10:15 → TELE-WESTW 14:07
PROVIDERS: ADMIT Nurse Practitioner Acute Care; ATTEND Family Medicine
PROC: 027035Z Dilation of Coronary Artery, One Artery with Two Drug-eluting Intraluminal Devices, Percutaneous Approach (ICD-10-PCS; principal; 2019-11-27)
PROC: 4A023N7 Measurement of Cardiac Sampling and Pressure, Left Heart, Percutaneous Approach (ICD-10-PCS; 2019-11-27)
PROC: B2111ZZ Fluoroscopy of Multiple Coronary Arteries using Low Osmolar Contrast (ICD-10-PCS; 2019-11-27)
PROC: B2161ZZ Fluoroscopy of Right and Left Heart using Low Osmolar Contrast (ICD-10-PCS; 2019-11-27)
PROC: B2121ZZ Fluoroscopy of Single Coronary Artery Bypass Graft using Low Osmolar Contrast (ICD-10-PCS; 2019-11-27)
DX: I24.9 Acute ischemic heart disease, unspecified (principal); J40 Bronchitis, not specified as acute or chronic; N18.3 Chronic kidney disease, stage 3 (moderate); I77.1 Stricture of artery; E11.22 Type 2 diabetes mellitus with diabetic chronic kidney disease; I12.9 Hypertensive chronic kidney disease with stage 1 through stage 4 chronic kidney disease, or unspecified chronic kidney disease; E03.9 Hypothyroidism, unspecified; E11.51 Type 2 diabetes mellitus with diabetic peripheral angiopathy without gangrene; N40.0 Benign prostatic hyperplasia without lower urinary tract symptoms; M10.9 Gout, unspecified; I25.118 Atherosclerotic heart disease of native coronary artery with other forms of angina pectoris; E78.00 Pure hypercholesterolemia, unspecified; E11.40 Type 2 diabetes mellitus with diabetic neuropathy, unspecified; Z79.899 Other long term (current) drug therapy; Z95.1 Presence of aortocoronary bypass graft; Z86.73 Personal history of transient ischemic attack (TIA), and cerebral infarction without residual deficits; Z83.3 Family history of diabetes mellitus; Z79.84 Long term (current) use of oral hypoglycemic drugs; Z79.01 Long term (current) use of anticoagulants; Z98.62 Peripheral vascular angioplasty status; Z87.891 Personal history of nicotine dependence; Z79.02 Long term (current) use of antithrombotics/antiplatelets
CPT/HCPCS: 36415; 71045; 80048; 80053; 81001; 82962; 83036; 83880; 84484; 85025; 85610; 85730; 86141; 87086; 93005; 93926; 96365; 96375; 99152; 99153; C1874; G0378; J0696; J1815; J2250; J2405

== ENCOUNTER 2019-11-30 19:16 | Inpatient (IN) | payer OTHER ==
[~2019-11-30] VITALS: Ht 175.3 cm; Wt 86.1 kg
[2019-11-30] MEDS ORDERED: NITROGLYCERIN 0.2MG/HR TOPICAL PATCH TD ONE ×2 (19:45→21:15)
[2019-11-30] MEDS ORDERED: MORPHINE SULFATE 4 MG/ML SYR/VIAL IV ONE (19:45)
[2019-11-30] MEDS ORDERED: LORazepam 0.5 MG TAB PO ONE (19:45)
[2019-11-30] MEDS ORDERED: NITROGLYCERIN 0.4MG/DOSE SPRAY 4.9GM SL ONE (19:45)
[2019-11-30] MEDS ORDERED: ONDANSETRON HCL 4 MG/2 ML VIAL IV ONE (19:45)
[2019-11-30 19:54] LABS: Basophils # (auto) 0.1 10 ^3/uL (0-0.2); Basophils % (auto) 0.7 % (0.0-2.0); Eosinophils # (auto) 0.3 10 ^3/uL (0-0.8); Eosinophils % (auto) 4.3 % (0.0-7.0); Hematocrit 40.3 % (41.0-53.0); Hemoglobin 13.5 g/dL (13.5-17.5); Lymphocytes # (auto) 1.7 10 ^3/uL (0.4-5.4); Lymphocytes % (auto) 22.4 % (10.0-50.0); Mean Corpuscular Hgb Conc. 33.4 g/dL (32.0-36.0); Mean Corpuscular Volume 95.5 fL (80.0-100.0); Monocytes # (auto) 0.8 10 ^3/uL (0-1.3); Monocytes % (auto) 10.3 % (0.0-12.0); Neutrophils # (auto) 4.6 10 ^3/uL (1.6-8.6); Neutrophils % (auto) 62.3 % (37.0-80.0); Platelet Count (auto) 172 10^3/uL (140-450); Red Blood Cells 4.22 10^6/uL (4.5-5.90); White Blood Cell 7.4 10^3/uL (4.4-10.8)
[2019-11-30] MEDS ORDERED: NITROGLYCERIN 0.4 MG SL TAB SL ONE (20:00)
[2019-11-30 20:09] LABS: INR 1.02 (0.9-1.15); Partial Thromboplastin Time 29.5 sec (23.64-32.05)
[2019-11-30 20:15] LABS: Albumin 3.3 g/dL (3.4-5.0); BUN/Creatinine Ratio 15.6; Calcium 8.4 mg/dL (8.5-10.1); Magnesium 1.9 mg/dL (1.6-2.6); Potassium 4.2 mmol/L (3.5-5.1)
[2019-11-30 20:20] LABS: Bilirubin, Total 0.5 mg/dL (0.2-1.0); Total Protein 6.8 g/dL (6.4-8.2)
[2019-11-30 21:15] LABS: Urine Bacteria NONE SEEN /hpf (None Seen); Urine Blood Negative /uL (Negative); Urine Specific Gravity 1.021 (1.001-1.035); Urine WBC 1 /hpf (0 - 3)
[2019-11-30] MEDS ORDERED: DEXTROSE (50%) 50ML SYRG IV PRN (22:15)
[2019-11-30] MEDS ORDERED: ACETAMINOPHEN 325 MG TAB PO PRN (22:15)
[2019-11-30] MEDS ORDERED: MORPHINE SULF INJ 2 MG/ML SYRINGE 1ML IV PRN (22:15)
[2019-11-30] MEDS ORDERED: NITROGLYCERIN 0.4 MG SL TAB SL PRN (22:15)
[2019-11-30] MEDS ORDERED: ONDANSETRON HCL 4 MG/2 ML VIAL IV PRN (22:15)
[2019-11-30] MEDS: SODIUM CHLORIDE 0.9% 1,000 ML IV SCH (22:47)
[2019-11-30] MEDS: MORPHINE SULFATE 4 MG/ML SYR/VIAL IV PRN (22:47)
--- NOTE | 2019-11-30 23:35 | NUR ---
Admitted this 79 year old client from ER to floor Room 295 B by wheelchair with the chief complaint of chest pain and diagnosed as NSTEMI. Pt. is alert, awake, oriented x 4 and is in Room Air. Pt. breathing deep, regular and unlabored. Pt. verbalized presence of chest pain about 8/10 scale, sharp and radiating to the Left Shoulder blade. Pt. is coherent and able to answer simple health questions appropriately. Pt. placed to the bed comfortably. Pt. is adlib, able to turn self and is independent with ADL'sand can ambulate to the BR. IV access@ the LFA G # 22 is patent and intact and is connected to the IVF of NS @ 75 ml/hr. continuous. Pt.'s skin is generally intact. No s/s of wound or no s/s of pressure ulcer or decub. Pt. on Tele # 58 SR @ the monitor @ 60's to 70's. Pt. last BM is 11/30/19. Abdomen soft and presence of bowel sounds on all quadrants. Pt is on standard/universal precaution. No isolation. Pt. is changed to hospital gown and keep comfortable in bed.
--- NOTE | 2019-11-30 23:40 | NUR ---
Gathered data from pt. oriented pt. to the room and unit including hospital policies such as "no smoking" policy, visitation policies during COVID season, safety and hospital procedures and routines such as taking v/s, telemetry, blood glucose monitoring and lab. draws as ordered during hospitalization. Pt. provided orientation about the use of call-light, telephone, TV and bed controls. Pt. instructed to use call-light when in need of help or assistance. Pt. verbalized understanding.
[2019-12-01] VITALS: BP 139/73
--- NOTE | 2019-12-01 | NUR ---
V/s taken and recorded. 02 sat is 91% in Room Air. Pt. is started on 2L/NC to make or increase 02 sat > 92 %. Pt. is now 95 % on 2L/NC. Pt. is SR @ the 70's @ the monitor. Siderails up x 2, bed locked in low position, and call-light within reach@ the bedside.
[2019-12-01] MEDS: InsuLIN REG 1unit/0.01ml Soln (100units/ml) SC SCH ×6 (00:57→20:54)
[2019-12-01] MEDS: ACCU-CHEK COMFORT CURVE STRIP VI SCH ×6 (00:57→20:47)
--- NOTE | 2019-12-01 00:57 | NUR ---
Accucheck taken with result of 102. Pt. made aware of his blood sugar result of 102. No coverage for Regular Human Insulin needed.
--- NOTE | 2019-12-01 01:00 | NUR ---
MRSA Swab for Nares taken from pt. and sent to lab. by tubing.
[2019-12-01] MEDS: MORPHINE SULFATE 4 MG/ML SYR/VIAL IV PRN (01:17)
--- NOTE | 2019-12-01 01:17 | NUR ---
Pt. given Morphine Sulfate 2 mg. IVP for chest pain, sharp and hurting radiating to the left shoulder blade about 8/10 scale as verbalized by the pt. - See Emar.
--- NOTE | 2019-12-01 01:47 | NUR ---
Pt. calm and pain is tolerable @ 3/10 scale. Pt. resting and ready to sleep. Informed pt. that the engineering department will be called/notified about the TV's not working @ this time for the engineering to fix it in the morning.
--- NOTE | 2019-12-01 02:00 | NUR ---
Pt. is calm and sleeping now. Keeping room environment quiet and free from unnecessary noise. Lights off to promote proper rest and sleep. Pt. is SR @ 70's @ the Tele # 58.
--- NOTE | 2019-12-01 04:00 | NUR ---
Pt. is resting and sleeping. SR @ 70's @ the Tele monitor # 58.
--- NOTE | 2019-12-01 04:53 | NUR ---
Accucheck taken with result of BS = 102 . No coverage for Regular Human Insulin needed. Pt. made aware of the blood sugar result @ this time. Pt. verbalized understanding.
[2019-12-01 05:31] VITALS: BP 129/73
[2019-12-01] MEDS: LEVOTHYROXINE SODIUM 112 MCG TAB PO SCH (06:41)
--- NOTE | 2019-12-01 06:41 | NUR ---
Meds. as scheduled for 0700 Am given @ this time. Pt. made aware of the use of the med. Pt. verbalized understanding. Labs. are drawn @ this time by the Dust Collector, the CBC and Hgb. A1C. Pt. cooperative or compliant with his care.
[2019-12-01] MEDS: NITROGLYCERIN 0.4 MG SL TAB SL PRN ×2 (07:04→07:57)
--- NOTE | 2019-12-01 07:04 | NUR ---
BP = 131/68 , HR = 68/min.
--- NOTE | 2019-12-01 07:04 | NUR ---
Pt. given Nitroglycerin 0.4 mg. tab. SL for Chest pain radiating to the left shoulder blade hurting and sharp pain about 7/10 scale.
--- NOTE | 2019-12-01 07:09 | NUR ---
Pt. verbalized pain is going down to 1/10 scale after 5 mins. Nitroglycerin 0.4 mg. tab. given. Pt. is resting with B+ 117/62 (87) and Pt. calm and resting quietly. HR = 61/min.
[2019-12-01 07:11] LABS: Basophils # (auto) 0 10 ^3/uL (0-0.2); Basophils % (auto) 0.6 % (0.0-2.0); Eosinophils # (auto) 0.4 10 ^3/uL (0-0.8); Eosinophils % (auto) 6.4 % (0.0-7.0); Hematocrit 38.5 % (41.0-53.0); Hemoglobin 13.1 g/dL (13.5-17.5); Lymphocytes # (auto) 1.5 10 ^3/uL (0.4-5.4); Lymphocytes % (auto) 24.8 % (10.0-50.0); Mean Corpuscular Hemoglobin 32.5 pg (28.0-32.0); Mean Corpuscular Hgb Conc. 34.1 g/dL (32.0-36.0); Mean Corpuscular Volume 95.3 fL (80.0-100.0); Monocytes # (auto) 0.7 10 ^3/uL (0-1.3); Monocytes % (auto) 12.1 % (0.0-12.0); Neutrophils # (auto) 3.4 10 ^3/uL (1.6-8.6); Neutrophils % (auto) 56.1 % (37.0-80.0); Platelet Count (auto) 156 10^3/uL (140-450); Red Blood Cells 4.04 10^6/uL (4.5-5.90)
[2019-12-01 07:27] LABS: Calcium 8.4 mg/dL (8.5-10.1); Potassium 4.1 mmol/L (3.5-5.1)
[2019-12-01 07:34] LABS: BUN/Creatinine Ratio 19.8
--- NOTE | 2019-12-01 07:40 | NUR ---
Pt. started to have chest pain again about 7/10 scale. Day Shift RN made aware.
--- NOTE | 2019-12-01 07:45 | NUR ---
Opening Shift Note Assumed care of patient, awake, alert, and oriented. Patient c/o chest pain 5/10, radiating to left shoulder, achy consistent pain. Night RN administering chest pain protocol. Bed in lowest/locked position, bed rails up x2, call light within reach. Instructed on POC and to call for assist PRN. Will continue to monitor for changes Q1hr and PRN.
--- NOTE | 2019-12-01 07:45 | NUR ---
EKG done @ the bedside, SR @ the 60's - see EKG result @ the chart.
--- NOTE | 2019-12-01 07:47 | NUR ---
EKG done @the bedside, SR @ the 60's @ the EKG result and Day Shift RN Simona went to ER to have the EKG signed by Dr. Haines. EKG's are fine according to Dr. Haines.
--- NOTE | 2019-12-01 07:50 | NUR ---
EKG EKG PERFORMED. RESULTS TAKEN TO ER. DR LAN ASSESSED EKG AND WAS INFORMED PATIENT HAD 2 STENTS PLACED Sunday11/27/[address] RODRIGUEZ. PER DR LAN, "PATIENT HAS NO NEW CHANGES ON EKG AND TO MAKE SURE PATIENT IS ON PLAVIX 75MG DAILY." WILL CONTINUE TO MONITOR
--- NOTE | 2019-12-01 07:57 | NUR ---
Pt. given the second dose Nitroglycerin 0.4 SL @ 0757 Am s/p EKG @ the bedside. BP = 154/78 (108) , HR = 62/min.
--- NOTE | 2019-12-01 08:02 | NUR ---
Pt. pain level lower down from 02/12 to 12/13 , BP = 108/61 , HR = 68/min.
[2019-12-01 09:00] VITALS: BP 134/71
[2019-12-01] MEDS: CARVEDILOL 3.125 MG TAB PO SCH ×2 (09:18→21:13)
[2019-12-01] MEDS: CLOPIDOGREL BISULFATE 75 MG TAB PO SCH (09:19)
[2019-12-01] MEDS: DOCUSATE SOD 100 MG CAP PO SCH (09:19)
[2019-12-01] MEDS: ASPirin 81 mg TAB PO SCH (09:19)
[2019-12-01] MEDS: RIVAROXABAN 10 MG TAB PO SCH (09:19)
[2019-12-01] MEDS: LOSARTAN POTASSIUM 25 MG TAB PO SCH (09:19)
--- NOTE | 2019-12-01 09:25 | NUR ---
AMBULATION PATIENT AMBULATING IN HALLS. NO S/S OF DISTRESS, PAIN, OR SOB. WILL CONTINUE TO MONITOR
--- NOTE | 2019-12-01 11:40 | NUR ---
MD ROUNDS DR RUSHING NOTIFIED PRIMARY RN OF CARDIOLOGY CONSULT FOR ELEVATED TROPONINS
[2019-12-01] MEDS: SODIUM CHLORIDE 0.9% 1,000 ML IV SCH (12:10)
[2019-12-01 13:00] VITALS: BP 125/65
--- NOTE | 2019-12-01 13:40 | NUR ---
AMBULATION PATIENT AMBULATING IN HALLS. NO S/S OF DISTRESS, PAIN, OR SOB. WILL CONTINUE TO MONITOR
[2019-12-01 17:00] VITALS: BP 131/67
[2019-12-01] MEDS ORDERED: KETOROLAC TROMETH 60MG/2ML VIAL IM ONE (17:00)
--- NOTE | 2019-12-01 17:00 | NUR ---
ROUNDS DR RODRIGUEZ ROUNDING. NEW ORDERS RECEIVED/ WILL CARRY OUT.. WILL CONTINUE TO MONITOR
[2019-12-01] MEDS ORDERED: FUROSEMIDE 100 MG/10ML VIAL IV ONE (17:15)
[2019-12-01] MEDS: NITROGLYCERIN 0.2MG/HR TOPICAL PATCH TD SCH (17:53)
[2019-12-01] MEDS ORDERED: ATORVASTATIN 20 MG TAB PO SCH ×2 (18:00→22:00)
--- NOTE | 2019-12-01 19:00 | NUR ---
Received report from the Day shift ANALY Jarvis. Pt. in bed resting.
--- NOTE | 2019-12-01 19:34 | NUR ---
Pt. SB @ 51 with depressed T wave @ tele # 58. Pt. verbalized that chest pain is only 2/10 scale and is tolerable and is not disturbing him.
--- NOTE | 2019-12-01 20:47 | NUR ---
Accucheck taken with result of BS = 162 @ 2046 pm.
--- NOTE | 2019-12-01 20:47 | NUR ---
Pt. given 3 units of Regular Human Insulin SQ @ the Left Lower Quadrant of the abdomen for BS = 162 .
--- NOTE | 2019-12-01 21:13 | NUR ---
Med. as scheduled given. Pt. aware of the use of the med. BP =118/57 ,HR = 52/min.
[2019-12-01 21:24] VITALS: BP 118/57
--- NOTE | 2019-12-01 23:30 | NUR ---
Pt. resting and started to sleep. Kept room quiet and dim-lighted . Bed locked in low position. Call-light within reach @ the bedside.
[2019-12-02] MEDS: ACCU-CHEK COMFORT CURVE STRIP VI SCH ×5 (00:41→16:00)
--- NOTE | 2019-12-02 00:41 | NUR ---
Accucheck taken with results of BS = 159
[2019-12-02] MEDS: InsuLIN REG 1unit/0.01ml Soln (100units/ml) SC SCH ×5 (00:49→16:00)
--- NOTE | 2019-12-02 00:49 | NUR ---
Pt. given 2 units of Regular Human Insulin SQ @ the PURA for BS = 159 - See Emar.
--- NOTE | 2019-12-02 04:00 | NUR ---
Pt. resting in bed. Maintained a safe and a quiet environment.
--- NOTE | 2019-12-02 04:31 | NUR ---
Accucheck taken with result of BS = 88 , No coverage for Regular Human Insulin needed. Pt. aware of his blood sugar level @ this time. Pt. given 1 Walker sandwich and 1 jello as snacks @ the table as needed when feeling hungry.
[2019-12-02 05:05] VITALS: BP 159/92
[2019-12-02 05:50] LABS: Basophils # (auto) 0.1 10 ^3/uL (0-0.2); Basophils % (auto) 0.8 % (0.0-2.0); Eosinophils # (auto) 0.4 10 ^3/uL (0-0.8); Eosinophils % (auto) 6.7 % (0.0-7.0); Hematocrit 40.7 % (41.0-53.0); Hemoglobin 13.7 g/dL (13.5-17.5); Lymphocytes # (auto) 1.4 10 ^3/uL (0.4-5.4); Lymphocytes % (auto) 21.6 % (10.0-50.0); Mean Corpuscular Hemoglobin 32.2 pg (28.0-32.0); Mean Corpuscular Hgb Conc. 33.6 g/dL (32.0-36.0); Mean Corpuscular Volume 95.8 fL (80.0-100.0); Monocytes # (auto) 0.7 10 ^3/uL (0-1.3); Monocytes % (auto) 11.2 % (0.0-12.0); Neutrophils # (auto) 3.8 10 ^3/uL (1.6-8.6); Neutrophils % (auto) 59.7 % (37.0-80.0); Platelet Count (auto) 166 10^3/uL (140-450); Red Blood Cells 4.25 10^6/uL (4.5-5.90); Red Cell Distribution Width 14.3 % (11.8-14.3); White Blood Cell 6.4 10^3/uL (4.4-10.8)
[2019-12-02 06:21] LABS: BUN/Creatinine Ratio 25.5; Calcium 8.7 mg/dL (8.5-10.1); Potassium 4.1 mmol/L (3.5-5.1)
[2019-12-02] MEDS: LEVOTHYROXINE SODIUM 112 MCG TAB PO SCH (06:26)
--- NOTE | 2019-12-02 06:30 | NUR ---
Pt. denies pain @ this time. Pt. verbalized that when he's resting, he does not feel any pain. Pt. feels pain only when coughing or when body moves vigorously. But since he's resting in bed, pain scale is 0/10 as pt. verbalized.
--- NOTE | 2019-12-02 08:00 | NUR ---
Opening Shift Note Assumed care of patient, awake, alert, and oriented. No S/S of distress/SOB or pain. Bed in lowest/locked position, bed rails up x2, call light within reach. Instructed on POC and to call for assist PRN. Will continue to monitor for changes Q1hr and PRN.
--- NOTE | 2019-12-02 08:45 | NUR ---
AMBULATION PATIENT AMBULATING IN HALLS. NO S/S OF DISTRESS, PAIN, OR SOB. WILL CONTINUE TO MONITOR
[2019-12-02] MEDS: DOCUSATE SOD 100 MG CAP PO SCH (09:11)
[2019-12-02] MEDS: ASPirin 81 mg TAB PO SCH (09:11)
[2019-12-02] MEDS: CARVEDILOL 3.125 MG TAB PO SCH (09:12)
[2019-12-02] MEDS: LOSARTAN POTASSIUM 25 MG TAB PO SCH (09:12)
[2019-12-02] MEDS: RIVAROXABAN 10 MG TAB PO SCH (09:12)
[2019-12-02] MEDS: CLOPIDOGREL BISULFATE 75 MG TAB PO SCH (09:12)
[2019-12-02] MEDS: NITROGLYCERIN 0.2MG/HR TOPICAL PATCH TD SCH (09:13)
[2019-12-02 09:29] VITALS: BP 145/72
[2019-12-02 12:55] VITALS: BP 129/61
--- NOTE | 2019-12-02 16:14 | NUR ---
Discharge instructions given as ordered. Encourage to follow up with PMD as instructed. All questions and concerns addressed. Patient verbalized understanding. IV removed with catheter intact, pressure dressing applied. Telemetry unit returned to ICU. Patient taken to vehicle via wheelchair with all personal belongings, accompanied by staff . No distress noted at time of departure.
== END 2019-12-02 16:15 | disposition home or self-care (01) | DRG 282 ==
LOC: ER 19:16 → TELE 19:17 → TELE-WESTW 23:06
PROVIDERS: ADMIT Hospitalist; ATTEND Internal Medicine Nephrology
DX: I21.4 Non-ST elevation (NSTEMI) myocardial infarction (principal); M19.90 Unspecified osteoarthritis, unspecified site; I10 Essential (primary) hypertension; E78.5 Hyperlipidemia, unspecified; E11.51 Type 2 diabetes mellitus with diabetic peripheral angiopathy without gangrene; E11.65 Type 2 diabetes mellitus with hyperglycemia; I25.10 Atherosclerotic heart disease of native coronary artery without angina pectoris; I25.5 Ischemic cardiomyopathy; I25.2 Old myocardial infarction; Z86.73 Personal history of transient ischemic attack (TIA), and cerebral infarction without residual deficits; Z95.5 Presence of coronary angioplasty implant and graft; Z95.1 Presence of aortocoronary bypass graft
CPT/HCPCS: 36415; 71045; 80048; 80053; 80061; 81001; 82962; 83036; 83735; 83880; 84443; 84484; 85025; 85610; 85730; 87081; 93005; G0378; J1815; J1885; J2405

== ENCOUNTER → 2019-12-19 | Outpatient (CLI) | payer OTHER, MEDICARE ==
[~2019-12-19] MED LIST changes: +IOHEXOL 350 MG/ML 100ML IJ ONE
[2019-12-19 10:40] VITALS: BP 102/48
[2019-12-19 13:00] VITALS: BP 138/54
== END | disposition home or self-care (01) ==
LOC: Rad HDHVI 10:35
PROVIDERS: ATTEND Internal Medicine Cardiovascular Disease
DX: J43.2 Centrilobular emphysema (principal); I70.0 Atherosclerosis of aorta; I25.10 Atherosclerotic heart disease of native coronary artery without angina pectoris; J84.10 Pulmonary fibrosis, unspecified; R94.4 Abnormal results of kidney function studies
CPT/HCPCS: 36415; 71275; 82565; G0463; Q9967

== ENCOUNTER → 2019-12-31 | Outpatient (CLI) | payer OTHER ==
[~2019-12-31] MED LIST changes: -IOHEXOL 350 MG/ML 100ML IJ ONE
== END | disposition home or self-care (01) ==
LOC: Rad HDHVI 10:58
PROVIDERS: ATTEND Internal Medicine Cardiovascular Disease
DX: I08.3 Combined rheumatic disorders of mitral, aortic and tricuspid valves (principal); R07.89 Other chest pain; I25.118 Atherosclerotic heart disease of native coronary artery with other forms of angina pectoris; I10 Essential (primary) hypertension
CPT/HCPCS: 93306

== ENCOUNTER → 2020-01-05 | Outpatient (CLI) | payer OTHER ==
[~2020-01-05] MED LIST changes: +ALL300T PO; +CARV6.2551 PO; +FINA5TAB4 PO; +HYDR-4072 PO; +LOSA-69 PO; +MORP30TA PO; +PANT40TA2 PO; +TAMS0.4C36 PO
== END | disposition home or self-care (01) ==
LOC: LAB 08:37
PROVIDERS: ATTEND Urology
DX: R97.20 Elevated prostate specific antigen [PSA] (principal)
CPT/HCPCS: 84154

== ENCOUNTER 2020-01-08 10:56 | Emergency (ER) | payer OTHER ==
[~2020-01-08] VITALS: Ht 175.3 cm; Wt 82.6 kg
[~2020-01-08 10:56] MED LIST changes: -ALL300T PO; -CARV6.2551 PO; -FINA5TAB4 PO; -HYDR-4072 PO; -LOSA-69 PO; -MORP30TA PO; -PANT40TA2 PO; -TAMS0.4C36 PO
[2020-01-08 11:12] VITALS: BP 111/49
[2020-01-08 11:50] LABS: Basophils # (auto) 0 10 ^3/uL (0-0.2); Basophils % (auto) 0.7 % (0.0-2.0); Eosinophils # (auto) 0.4 10 ^3/uL (0-0.8); Eosinophils % (auto) 5.8 % (0.0-7.0); Hemoglobin 13.5 g/dL (13.5-17.5); Lymphocytes # (auto) 1.4 10 ^3/uL (0.4-5.4); Lymphocytes % (auto) 21.7 % (10.0-50.0); Mean Corpuscular Hemoglobin 32.3 pg (28.0-32.0); Mean Corpuscular Hgb Conc. 33.8 g/dL (32.0-36.0); Mean Corpuscular Volume 95.7 fL (80.0-100.0); Monocytes # (auto) 0.6 10 ^3/uL (0-1.3); Monocytes % (auto) 9.8 % (0.0-12.0); Neutrophils # (auto) 4.1 10 ^3/uL (1.6-8.6); Platelet Count (auto) 212 10^3/uL (140-450); Red Blood Cells 4.18 10^6/uL (4.5-5.90); Red Cell Distribution Width 14.1 % (11.8-14.3); White Blood Cell 6.7 10^3/uL (4.4-10.8)
[2020-01-08 12:09] LABS: Albumin 3.5 g/dL (3.4-5.0); Calcium 8.7 mg/dL (8.5-10.1); Potassium 4.3 mmol/L (3.5-5.1)
[2020-01-08 12:14] LABS: Bilirubin, Total 0.7 mg/dL (0.2-1.0); Total Protein 6.9 g/dL (6.4-8.2)
== END 2020-01-08 13:56 | disposition left against medical advice (07) ==
LOC: ER 10:56
DX: I24.9 Acute ischemic heart disease, unspecified (principal); E11.65 Type 2 diabetes mellitus with hyperglycemia; I10 Essential (primary) hypertension; E78.5 Hyperlipidemia, unspecified; M10.9 Gout, unspecified; Z98.61 Coronary angioplasty status; Z90.49 Acquired absence of other specified parts of digestive tract; Z79.899 Other long term (current) drug therapy
CPT/HCPCS: 36415; 71046; 80053; 84484; 85025; 93005

== ENCOUNTER 2020-01-23 18:41 | Inpatient (IN) | payer OTHER ==
[~2020-01-23] VITALS: Ht 175.3 cm; Wt 83.2 kg
--- NOTE | 2020-01-23 07:30 | NUR ---
OPENING SHIFT NOTE ASSUMED CARE OF PATIENT. PT AWAKE AND ALERT. NO S/S OF DISTRESS. VS STABLE. RESPIRATIONS NORMAL AND NONLABORED. BED IN LOWEST POSITION WITH CALL LIGHT IN PLACE. EDUCATED PT TO CALL FOR ASSISTANCE IF NEEDED. PT VERBALIZED UNDERSTANDING. Signed: 01/24/20 at 0054 by Blanca GODINEZ <Co-Signature Required> Co-Signed: 01/24/20 at 4 by Alice Pressley RN
[2020-01-23] MEDS ORDERED: NITROGLYCERIN 0.4 MG SL TAB SL PRN (19:00)
[2020-01-23] MEDS ORDERED: HYDROmorphone HCL 2 MG/ML VL IV PRN (19:00)
[2020-01-23] MEDS ORDERED: MORPHINE SULF INJ 2 MG/ML SYRINGE 1ML IV PRN (19:00)
[2020-01-23 19:42] LABS: Basophils # (auto) 0 10 ^3/uL (0-0.2); Basophils % (auto) 0.6 % (0.0-2.0); Eosinophils # (auto) 0.4 10 ^3/uL (0-0.8); Eosinophils % (auto) 6.5 % (0.0-7.0); Lymphocytes # (auto) 1.7 10 ^3/uL (0.4-5.4); Lymphocytes % (auto) 25.3 % (10.0-50.0); Mean Corpuscular Hemoglobin 32.3 pg (28.0-32.0); Mean Corpuscular Hgb Conc. 33.4 g/dL (32.0-36.0); Mean Corpuscular Volume 96.7 fL (80.0-100.0); Monocytes # (auto) 0.7 10 ^3/uL (0-1.3); Monocytes % (auto) 11.3 % (0.0-12.0); Neutrophils # (auto) 3.7 10 ^3/uL (1.6-8.6); Neutrophils % (auto) 56.3 % (37.0-80.0); Nucleated Red Blood Cells % 0.1 %; Platelet Count (auto) 225 10^3/uL (140-450); Red Blood Cells 4.04 10^6/uL (4.5-5.90); Red Cell Distribution Width 14.5 % (11.8-14.3); White Blood Cell 6.5 10^3/uL (4.4-10.8)
[2020-01-23] MEDS ORDERED: DEXTROSE (50%) 50ML SYRG IV PRN (19:45)
[2020-01-23] MEDS ORDERED: ALL300T PO (19:51)
[2020-01-23] MEDS ORDERED: CARV6.2551 PO (19:51)
[2020-01-23] MEDS ORDERED: LOSA-69 PO (19:51)
[2020-01-23] MEDS ORDERED: METF-370 PO (19:51)
[2020-01-23] MEDS ORDERED: PANT40TA2 PO (19:51)
[2020-01-23] MEDS ORDERED: FINA5TAB4 PO (19:51)
[2020-01-23] MEDS ORDERED: TAMS0.4C36 PO (19:51)
[2020-01-23] MEDS ORDERED: HYDR-4072 PO (19:53)
[2020-01-23] MEDS ORDERED: MORP30TA PO (19:53)
[2020-01-23 19:54] LABS: INR 1.07 (0.9-1.15); Partial Thromboplastin Time 27.3 sec (23.64-32.05)
[2020-01-23 19:56] LABS: Albumin 3.3 g/dL (3.4-5.0); BUN/Creatinine Ratio 16.9; Potassium 4.4 mmol/L (3.5-5.1)
[2020-01-23 19:59] LABS: Bilirubin, Total 0.5 mg/dL (0.2-1.0); Total Protein 6.7 g/dL (6.4-8.2)
--- NOTE | 2020-01-23 20:00 | NUR ---
Opening note Patient resting in bed with even and unlabored respirations, no distress noted. Instructed patient on POC, fall precautions and to call for assistance as needed. patient verbalized understanding. Fall precautions in place with call light within reach.
[2020-01-23 22:00] VITALS: BP 147/65
[2020-01-23] MEDS: InsuLIN REG 1unit/0.01ml Soln (100units/ml) SC SCH (22:00)
[2020-01-23] MEDS: ACCU-CHEK COMFORT CURVE STRIP VI SCH (22:22)
[2020-01-23] MEDS: CARVEDILOL 3.125 MG TAB PO SCH (22:22)
[2020-01-23] MEDS: ATORVASTATIN 20 MG TAB PO SCH (22:22)
[2020-01-23] MEDS: SODIUM CHLORIDE 0.9% 1,000 ML IV SCH (22:28)
[2020-01-23] MEDS: HYDROmorphone HCL 2 MG/ML VL IV PRN (22:43)
[2020-01-23] MEDS: ONDANSETRON HCL 4 MG/2 ML VIAL IV PRN (23:48)
[2020-01-24] VITALS (8 sets, daily range): BP systolic 104–137; BP diastolic 58–87
[2020-01-24] MEDS: DexAMETHasone SOD PHOS 10MG/1ML VIAL INJ IV SCH ×3 (01:07→11:26)
--- NOTE | 2020-01-24 01:20 | NUR ---
Patient resting in bed with even and unlabored respirations, no distress noted. Fall precautions in place with call light within reach.
[2020-01-24] MEDS: HYDROmorphone HCL 2 MG/ML VL IV PRN ×2 (05:02→10:16)
[2020-01-24] MEDS: ONDANSETRON HCL 4 MG/2 ML VIAL IV PRN ×2 (05:02→22:05)
[2020-01-24] MEDS: LEVOTHYROXINE SODIUM 100 MCG TAB PO SCH (05:02)
[2020-01-24] MEDS: ACCU-CHEK COMFORT CURVE STRIP VI SCH ×4 (05:14→21:43)
[2020-01-24] MEDS: InsuLIN REG 1unit/0.01ml Soln (100units/ml) SC SCH ×4 (05:18→22:04)
--- NOTE | 2020-01-24 05:57 | NUR ---
EKG performed per MD order.
--- NOTE | 2020-01-24 06:23 | NUR ---
CLOSING NOTE PT SITTING IN CHAIR AT BEDSIDE. VS STABLE. NO S/S OF DISTRESS. RESPIRATIONS NORMAL AND NONLABORED.FALL PRECAUTIONS IN PLACE. PT EDUCATED TO CALL FOR ASSISTANCE IF NEEDED. CALL LIGHT WITHIN REACH. Signed: 01/24/20 at 628 by Blanca GODINEZ <Co-Signature Required> Co-Signed: 01/24/20 at 628 by Alice Pressley RN
[2020-01-24] MEDS: metFORMIN HYDROCHLORIDE 500 MG TAB PO SCH ×2 (06:37→17:34)
--- NOTE | 2020-01-24 06:37 | NUR ---
Patient sitting in chair Patient reports pain has improved after administration of medications per MD order. Respirations are even and unlabored, no distress noted. Fall precautions in place with call light within reach.
--- NOTE | 2020-01-24 07:24 | NUR ---
CARE ENDORSED TO TENZIN BECKFORD
--- NOTE | 2020-01-24 07:26 | NUR ---
OPENING SHIFT NOTE ASSUMED CARE OF PATIENT FROM SHELL WORKER RN KRYSTINA. PATIENT IS AWAKE, ALERT, AND ORIENTED X4. PATIENT HAS NO S/S OF DISTRESS/SOB OR PAIN. INSTRUCTED PATIENT ON POC, PATIENT VERBALIZED UNDERSTANDING. BED IS IN LOWEST POSITION WITH SIDE RAILS RAISED X2, BED WHEELS LOCKED, AND CALL LIGHT IS WITHIN REACH. WILL CONTINUE TO MONITOR.
[2020-01-24] MEDS: SODIUM CHLORIDE 0.9% 1,000 ML IV SCH (09:05)
[2020-01-24] MEDS: CARVEDILOL 3.125 MG TAB PO SCH ×4 (10:00→22:00)
[2020-01-24] MEDS: LOSARTAN POTASSIUM 50 MG TAB PO SCH (10:12)
[2020-01-24] MEDS: PANTOPRAZOLE 40 MG TAB PO SCH (10:13)
[2020-01-24] MEDS: FINASTERIDE 5 MG TAB PO SCH (10:13)
[2020-01-24] MEDS: ALLOPURINOL 300 MG TAB PO SCH (10:13)
[2020-01-24] MEDS: CLOPIDOGREL BISULFATE 75 MG TAB PO SCH (10:14)
--- NOTE | 2020-01-24 12:53 | NUR ---
MD HYMAN AT BEDSIDE UPDATED MD ON PATIENT'S STATUS, MD IS AWARE AND IS DISCUSSING POC WITH PATIENT. AWAITING FOR POC.
[2020-01-24] MEDS ORDERED: MORPHINE SULF 15mg ER tab PO ONE (13:00)
--- NOTE | 2020-01-24 14:45 | NUR ---
MD RODRIGUEZ AT BEDSIDE PER MD INCREASE ORAMORPH BY 15 MG IF PAIN IS UNCONTROLLABLE. UPDATED MD ON PATIENT'S STATUS. MD IS AWARE. NO NEW ORDERS AT THIS TIME.
[2020-01-24] MEDS: DexAMETHasone SOD PHOS 4 MG/1ML SDV INJ IV SCH (17:34)
[2020-01-24] MEDS: TAMSULOSIN HYDROCHLORIDE 0.4 MG CAP PO SCH (17:34)
--- NOTE | 2020-01-24 19:22 | NUR ---
CLOSING SHIFT NOTE ENDORSED CARE TO AUTOMATIC BOW MAKER MACHINE TENDER RN GLADYS. PATIENT HAS NO S/S OF DISTRESS/SOB OR PAIN AT THIS TIME.
[2020-01-24] MEDS: ATORVASTATIN 20 MG TAB PO SCH (21:43)
[2020-01-24] MEDS: MORPHINE SULF 15mg ER tab PO SCH (21:43)
[2020-01-24 22:29] LABS: Urine Bacteria NONE SEEN /hpf (None Seen); Urine Blood Negative /uL (Negative); Urine Specific Gravity 1.022 (1.001-1.035); Urine WBC <1 /hpf (0 - 3)
[2020-01-25] VITALS (7 sets, daily range): BP systolic 115–146; BP diastolic 62–86
--- NOTE | 2020-01-25 | NUR ---
Patient ambulating around unit, steady gait noted, no s/s of distress. Will continue to monitor.
[2020-01-25] MEDS: DexAMETHasone SOD PHOS 4 MG/1ML SDV INJ IV SCH ×5 (00:59→23:05)
[2020-01-25] MEDS: LEVOTHYROXINE SODIUM 100 MCG TAB PO SCH (05:38)
[2020-01-25] MEDS: ACCU-CHEK COMFORT CURVE STRIP VI SCH ×4 (05:38→22:00)
--- NOTE | 2020-01-25 05:40 | NUR ---
Patient requesting Levothyroxine early, will administer and continue to monitor.
[2020-01-25] MEDS: InsuLIN REG 1unit/0.01ml Soln (100units/ml) SC SCH ×4 (05:55→23:05)
--- NOTE | 2020-01-25 07:05 | NUR ---
Patient lying in bed, awake and alert. No s/s of distress. Bed in lowest locked position, side rails up x2, call light within reach. Will endorse care to dayshift RN.
[2020-01-25] MEDS: metFORMIN HYDROCHLORIDE 500 MG TAB PO SCH ×2 (07:54→17:46)
[2020-01-25] MEDS: HYDROmorphone HCL 2 MG/ML VL IV PRN ×2 (08:02→15:07)
[2020-01-25] MEDS: CARVEDILOL 3.125 MG TAB PO SCH ×2 (10:00→22:42)
[2020-01-25] MEDS: ALLOPURINOL 300 MG TAB PO SCH (10:40)
[2020-01-25] MEDS: FINASTERIDE 5 MG TAB PO SCH (10:41)
[2020-01-25] MEDS: CLOPIDOGREL BISULFATE 75 MG TAB PO SCH (10:41)
[2020-01-25] MEDS: MORPHINE SULF 15mg ER tab PO SCH ×2 (10:41→22:42)
[2020-01-25] MEDS: LOSARTAN POTASSIUM 50 MG TAB PO SCH (10:41)
[2020-01-25] MEDS: PANTOPRAZOLE 40 MG TAB PO SCH (10:41)
[2020-01-25] MEDS: ONDANSETRON HCL 4 MG/2 ML VIAL IV PRN (15:07)
[2020-01-25] MEDS: TAMSULOSIN HYDROCHLORIDE 0.4 MG CAP PO SCH (17:46)
[2020-01-25] MEDS: ATORVASTATIN 20 MG TAB PO SCH (22:42)
[2020-01-26] MEDS: HYDROmorphone HCL 2 MG/ML VL IV PRN ×3 (03:29→13:04)
[2020-01-26 05:00] VITALS: BP 140/65
[2020-01-26 06:10] LABS: Basophils # (auto) 0 10 ^3/uL (0-0.2); Basophils % (auto) 0.1 % (0.0-2.0); Eosinophils # (auto) 0 10 ^3/uL (0-0.8); Hematocrit 40.3 % (41.0-53.0); Hemoglobin 13.5 g/dL (13.5-17.5); Lymphocytes # (auto) 0.7 10 ^3/uL (0.4-5.4); Lymphocytes % (auto) 5.7 % (10.0-50.0); Mean Corpuscular Hemoglobin 32.2 pg (28.0-32.0); Mean Corpuscular Hgb Conc. 33.5 g/dL (32.0-36.0); Monocytes # (auto) 0.5 10 ^3/uL (0-1.3); Monocytes % (auto) 4.4 % (0.0-12.0); Neutrophils # (auto) 10.8 10 ^3/uL (1.6-8.6); Neutrophils % (auto) 89.8 % (37.0-80.0); Nucleated Red Blood Cells % 0.3 %; Platelet Count (auto) 236 10^3/uL (140-450); Red Blood Cells 4.19 10^6/uL (4.5-5.90); Red Cell Distribution Width 14.2 % (11.8-14.3)
[2020-01-26] MEDS: ACCU-CHEK COMFORT CURVE STRIP VI SCH ×4 (06:16→22:40)
[2020-01-26] MEDS: LEVOTHYROXINE SODIUM 100 MCG TAB PO SCH (06:16)
[2020-01-26] MEDS: DexAMETHasone SOD PHOS 4 MG/1ML SDV INJ IV SCH ×3 (06:17→22:48)
[2020-01-26 06:25] LABS: Potassium 4.6 mmol/L (3.5-5.1)
[2020-01-26 06:31] LABS: BUN/Creatinine Ratio 25.2; Calcium 9.5 mg/dL (8.5-10.1)
[2020-01-26] MEDS: InsuLIN REG 1unit/0.01ml Soln (100units/ml) SC SCH ×4 (06:46→22:47)
--- NOTE | 2020-01-26 07:16 | NUR ---
OPENING SHIFT NOTE ASSUMED CARE OF PATIENT FROM BLUE PRINTS TRIMMER RN GLADYS. PATIENT IS AWAKE, ALERT, AND ORIENTED X4. PATIENT HAS NO S/S OF DISTRESS/SOB OR PAIN. INSTRUCTED PATIENT ON POC, PATIENT VERBALIZED UNDERSTANDING. BED IS IN LOWEST POSITION WITH SIDE RAILS RAISED X2, BED WHEELS LOCKED, AND CALL LIGHT IS WITHIN REACH. WILL CONTINUE TO MONITOR.
[2020-01-26] MEDS: metFORMIN HYDROCHLORIDE 500 MG TAB PO SCH ×2 (08:02→17:30)
--- NOTE | 2020-01-26 08:07 | NUR ---
PATIENT STATES HE IS HAVING 10/10 PAIN AND IS CURRENTLY GETTING WORSE AND NOT BEING CONTROLLED BY CURRENT PAIN MANAGEMENT REGIMEN. WILL INCREASE ORAMORPH ORDERED BY DR. RODRIGUEZ.
[2020-01-26] MEDS: CARVEDILOL 3.125 MG TAB PO SCH ×2 (10:00→23:01)
[2020-01-26] MEDS: ALLOPURINOL 300 MG TAB PO SCH (10:29)
[2020-01-26] MEDS: MORPHINE SULF 15mg ER tab PO SCH ×2 (10:29→22:49)
[2020-01-26] MEDS: PANTOPRAZOLE 40 MG TAB PO SCH (10:30)
[2020-01-26] MEDS: LOSARTAN POTASSIUM 50 MG TAB PO SCH (10:30)
[2020-01-26] MEDS: CLOPIDOGREL BISULFATE 75 MG TAB PO SCH (10:30)
[2020-01-26] MEDS: FINASTERIDE 5 MG TAB PO SCH (10:31)
--- NOTE | 2020-01-26 11:56 | NUR ---
MD HYMAN AT BEDSIDE. UPDATED MD ON PATIENT'S STATUS INCLUDING PATIENT REQUESTING STOOL SOFTENER, BILATERAL LOWER EXTREMITIES PITTING EDEMA 1+, WBC OF 12, INCREASED ORAMORPH TO 30 MG, PATIENT'S PAIN LEVEL IS 10/10 AND HE IS HAVING HICCUPS WITH FOOD REGURGITATION, MD IS AWARE AND WILL ORDER BACLOFEN.
[2020-01-26] MEDS ORDERED: PANTOPRAZOLE 40 MG TAB PO ONE (12:00)
[2020-01-26] MEDS ORDERED: DOCUSATE SOD 100 MG CAP PO ONE (12:00)
[2020-01-26 13:00] VITALS: BP 154/70
[2020-01-26] MEDS: BACLOFEN 10 MG TAB PO PRN ×2 (13:03→21:05)
--- NOTE | 2020-01-26 13:58 | NUR ---
PATIENT IS AMBULATING. INFORMED PATIENT TO PUSH CALL LIGHT WHEN HE IS BACK IN HIS ROOM SO I MAY REASSESS HIS BLOOD PRESSURE. PATIENT VERBALIZED UNDERSTANDING. PATIENT HAS NO S/S OF DISTRESS/SOB OR PAIN AT THIS TIME.
--- NOTE | 2020-01-26 16:00 | NUR ---
SPOKE WITH MD HYMAN AND INFORMED HIM PATIENT IS STILL HAVING 10/10 PAIN AND PAIN MEDS WERE ALREADY GIVEN. MD ORDERED LIQUID MORPHINE TO BE GIVEN. WILL FOLLOW THROUGH WITH ORDERS.
[2020-01-26] MEDS: MORPHINE SULFATE 10 MG/5 ML ORAL SOLN PO PRN ×2 (16:49→21:05)
[2020-01-26 17:00] VITALS: BP_SYST 146; BP_SYST 160; BP_DIAS 76; BP_DIAS 77
[2020-01-26] MEDS: TAMSULOSIN HYDROCHLORIDE 0.4 MG CAP PO SCH (17:29)
--- NOTE | 2020-01-26 17:40 | NUR ---
PAGED MD RODRIGUEZ FOR BLOOD PRESSURE OF 160/77 mmHg. AWAITING CALL BACK
--- NOTE | 2020-01-26 17:48 | NUR ---
MD RODRIGUEZ GAVE ORDERS FOR NORVASC TO BE GIVEN PRN. WILL FOLLOW THROUGH WITH ORDERS.
[2020-01-26] MEDS ORDERED: amLODIPine BESYLATE 5 MG TAB PO PRN (18:00)
--- NOTE | 2020-01-26 19:06 | NUR ---
CLOSING SHIFT NOTE ENDORSED CARE TO PHYSICIAN NON INVASIVE CARDIOLOGIST RN ALBERT. PATIENT HAS NO S/S OF DISTRESS/SOB OR PAIN AT THIS TIME.
--- NOTE | 2020-01-26 19:15 | NUR ---
OPENING SHIFT NOTE ASSUMED CARE OF PATIENT. PATIENT IS AWAKE, ALERT, AND ORIENTED X 4. PATIENT HAS NO S/S OF RESPIRATORY DISTRESS. RESPIRATIONS ARE REGULAR AND NON-LABORED. ON ROOM AIR. PATIENT COMPLAINTS ON PAIN AND HICCUPS THAT WILL BE ADDRESSED PER DR'S ORDER. BED IS IN LOWEST POSITION WITH SIDE RAILS RAISED X 2, BED WHEELS LOCKED, AND CALL LIGHT IS WITHIN REACH. INSTRUCTED PATIENT ON POC. PATIENT VERBALIZED UNDERSTANDING. WILL CONTINUE TO MONITOR 1QH AND/OR PRN.
[2020-01-26 20:20] VITALS: BP 127/58
[2020-01-26] MEDS: DOCUSATE SOD 100 MG CAP PO SCH (22:48)
[2020-01-26] MEDS: ATORVASTATIN 20 MG TAB PO SCH (22:48)
[2020-01-26 23:53] VITALS: BP 127/58
[2020-01-27 05:30] VITALS: BP 121/64
[2020-01-27] MEDS: ACCU-CHEK COMFORT CURVE STRIP VI SCH ×2 (06:50→12:21)
[2020-01-27] MEDS: LEVOTHYROXINE SODIUM 100 MCG TAB PO SCH (06:51)
[2020-01-27] MEDS: InsuLIN REG 1unit/0.01ml Soln (100units/ml) SC SCH ×2 (06:54→12:47)
[2020-01-27 08:00] VITALS: BP 116/53
[2020-01-27 09:00] VITALS: BP 116/53
[2020-01-27] MEDS: DexAMETHasone SOD PHOS 4 MG/1ML SDV INJ IV SCH (09:20)
[2020-01-27] MEDS: DOCUSATE SOD 100 MG CAP PO SCH (09:21)
[2020-01-27] MEDS: ALLOPURINOL 300 MG TAB PO SCH (09:21)
[2020-01-27] MEDS: CLOPIDOGREL BISULFATE 75 MG TAB PO SCH (09:21)
[2020-01-27] MEDS: FINASTERIDE 5 MG TAB PO SCH (09:22)
[2020-01-27] MEDS: metFORMIN HYDROCHLORIDE 500 MG TAB PO SCH (09:22)
[2020-01-27] MEDS: CARVEDILOL 3.125 MG TAB PO SCH (09:22)
[2020-01-27] MEDS: LOSARTAN POTASSIUM 50 MG TAB PO SCH (09:23)
[2020-01-27] MEDS: MORPHINE SULF 15mg ER tab PO SCH (09:23)
[2020-01-27] MEDS ORDERED: PANTOPRAZOLE 40 MG TAB PO SCH (10:00)
[2020-01-27] MEDS: MORPHINE SULFATE 10 MG/5 ML ORAL SOLN PO PRN (10:00)
[2020-01-27 11:22] VITALS: BP 116/53
--- NOTE | 2020-01-27 12:50 | NUR ---
Discharge home with [facility] instructions given as ordered. Encourage to follow up with PCP Dr. Reynolds as instructed. All questions and concerns addressed. Patient verbalized understanding. Medication reconciliation form completed and copy given to patient. IV removed with catheter intact, pressure dressing applied, nye catheter removed. Telemetry unit returned to ICU. Patient taken to vehicle via wheelchair with all personal belongings, accompanied by staff and family member. No distress noted at time of departure.
--- NOTE | 2020-01-27 15:15 | NUR ---
Assessment Patient is a 79-year-old who is alert and oriented. Assessment was completed with patient daughter Zonia . Prior to admission patient lived home with his and functioned independently. Per Zonia patient did not have any medical equipment. Per Zonia patient will return home to his prior living arrangements post discharge and she will transport patient home. Advised Zonia there is a social service consult for hospice evaluation. Information and choice letter was given to Zonia. Zonia requested [facility]. Informed Zonia she has the right to participate in all discharge planning. Zonia verbalized understanding and agreed to discharge plan. Faxed clinical information to [facility]. Per Ling with [facility] patient has been accepted and they will see patient upon d/c . Addendum: 01/27/20 at 1517 by MICHAEL HAN Amended: Links added.
== END 2020-01-27 12:55 | disposition hospice, home (50) | DRG 436 ==
LOC: WEST WING 18:41 → TELE-WESTW 20:00
PROVIDERS: ADMIT Internal Medicine Cardiovascular Disease; ATTEND Internal Medicine
DX: C22.8 Malignant neoplasm of liver, primary, unspecified as to type (principal); C79.51 Secondary malignant neoplasm of bone; E87.1 Hypo-osmolality and hyponatremia; D68.69 Other thrombophilia; M48.061 Spinal stenosis, lumbar region without neurogenic claudication; M10.9 Gout, unspecified; I12.9 Hypertensive chronic kidney disease with stage 1 through stage 4 chronic kidney disease, or unspecified chronic kidney disease; N18.9 Chronic kidney disease, unspecified; I25.10 Atherosclerotic heart disease of native coronary artery without angina pectoris; E03.9 Hypothyroidism, unspecified; E78.5 Hyperlipidemia, unspecified; G54.1 Lumbosacral plexus disorders; R06.6 Hiccough; E11.22 Type 2 diabetes mellitus with diabetic chronic kidney disease; E11.41 Type 2 diabetes mellitus with diabetic mononeuropathy; I48.91 Unspecified atrial fibrillation; Z86.73 Personal history of transient ischemic attack (TIA), and cerebral infarction without residual deficits; Z95.1 Presence of aortocoronary bypass graft; Z51.5 Encounter for palliative care
CPT/HCPCS: 36415; 71045; 72131; 80048; 80053; 81001; 82962; 83036; 85025; 85610; 85730; G0378; J1100; J1815; J2405